=== PATIENT | female | born 1965 | race Caucasian/White ===

== ENCOUNTER 2017-01-10 04:28 | Emergency (ER) | payer MEDICAID ==
[~2017-01-10] VITALS: Ht 165.1 cm; Wt 63.5 kg
[~2017-01-10 04:28] MED LIST: ALBU8.5H3 INH; AMLO5TAB2 PO; BACL20TA PO; BUDE10.2 INH; LISI-167 PO; PRED10TA PO; PRED20TA PO; TIOT18CA INH; TRAM50TA2 PO
[2017-01-10] MEDS ORDERED: KETOROLAC 30 MG/1 ML IM ONE (05:00)
[2017-01-10] MEDS ORDERED: KETOROLAC 30 MG/1 ML ONE (05:03)
[2017-01-10] MEDS ORDERED: ALBUTEROL/IPRATROPIUM 2.5MG/0.5MG, 3 ML ONE ×2 (05:51→08:46)
[2017-01-10 05:59] LABS: BLOOD UREA NITROGEN 22 mg/dL (7-18)
[2017-01-10] MEDS ORDERED: ALBUTEROL/IPRATROPIUM 2.5MG/0.5MG, 3 ML NPPB ONE (06:00)
[2017-01-10 06:07] LABS: IS PT STATUS REG ER OR PRE ER? YES
[2017-01-10 07:48] VITALS: BP 131/87
== END 2017-01-10 07:51 | disposition home or self-care (01) ==
LOC: ED 05:48
DX: J20.8 Acute bronchitis due to other specified organisms (principal); B97.89 Other viral agents as the cause of diseases classified elsewhere; I10 Essential (primary) hypertension; J44.9 Chronic obstructive pulmonary disease, unspecified; M54.2 Cervicalgia; G89.29 Other chronic pain; Z87.01 Personal history of pneumonia (recurrent)
CPT/HCPCS: 36415; 71020; 80048; 82040; 84484; 85025; 85379; 93005; 94640; 96372; 99285; J1885; J7620

== ENCOUNTER 2017-06-27 00:39 | Inpatient (IN) | payer MEDICAID ==
[~2017-06-27] VITALS: Ht 165.1 cm; Wt 65.0 kg
[~2017-06-27 00:39] MED LIST changes: -ALBU8.5H3 INH; +ALBU8.5H8 INH
[2017-06-27] MEDS ORDERED: ALBUTEROL/IPRATROPIUM 2.5MG/0.5MG, 3 ML ONE ×2 (01:27→02:29)
[2017-06-27] MEDS: ALBUTEROL/IPRATROPIUM 2.5MG/0.5MG, 3 ML NPPB SCH ×6 (01:49→19:15)
[2017-06-27 03:20] LABS: HEMATOCRIT 38.8 % (34.6-47.8); HEMOGLOBIN 12.4 g/dL (11.7-16.4); WHITE BLOOD COUNT 7.3 x10^3/uL (3.4-10)
[2017-06-27 03:25] LABS: BLOOD UREA NITROGEN 22 mg/dL (7-18)
[2017-06-27] MEDS ORDERED: SODIUM CHLORIDE FLUSH 10ML SYR IVF PRN (03:30)
[2017-06-27 03:32] LABS: IS PT STATUS REG ER OR PRE ER? YES
[2017-06-27] MEDS ORDERED: DOCUSATE 100 MG CAPSULE PO PRN (04:30)
[2017-06-27] MEDS ORDERED: TEMAZEPAM 15 MG CAPSULE PO PRN (04:30)
[2017-06-27] MEDS ORDERED: ENALAPRILAT 1.25 MG/ML, 2ML IVPush PRN (04:30)
[2017-06-27] MEDS ORDERED: GUAIFENESIN/DM 200-20MG, 10ML UDC PO PRN (04:30)
[2017-06-27] MEDS ORDERED: ONDANSETRON ODT 4 MG PO PRN (04:30)
[2017-06-27 05:08] VITALS: BP 151/82
[2017-06-27] MEDS: NICOTINE 14MG/24 HR PATCH.TD24 TD SCH (05:54)
[2017-06-27] MEDS: methylPREDNISolone SOD SUCC 40 MG/ML IVPush SCH ×3 (05:54→20:54)
[2017-06-27] MEDS: HEPARIN 5,000 UNITS/ML, 1ML SQ SCH ×3 (05:54→23:08)
[2017-06-27] MEDS ORDERED: ALBUTEROL/IPRATROPIUM 2.5MG/0.5MG, 3 ML NPPB PRN (06:00)
[2017-06-27] MEDS ORDERED: DOXYCYCLINE 100MG TABLET PO SCH (09:00)
[2017-06-27 10:20] VITALS: BP 146/77
[2017-06-27] MEDS: AMLODIPINE 2.5 MG TABLET PO SCH (10:21)
[2017-06-27] MEDS: ACETAMINOPHEN 325 MG TABLET PO PRN ×3 (11:16→20:54)
[2017-06-27 15:11] VITALS: BP 160/81
[2017-06-27 20:00] VITALS: BP 160/82
[2017-06-27] MEDS: DOXYCYCLINE 100MG TABLET PO SCH (20:54)
[2017-06-28 03:41] VITALS: BP 136/62
[2017-06-28] MEDS: NICOTINE 14MG/24 HR PATCH.TD24 TD SCH (05:34)
[2017-06-28] MEDS: methylPREDNISolone SOD SUCC 40 MG/ML IVPush SCH ×3 (05:34→21:00)
[2017-06-28 05:43] LABS: HEMATOCRIT 39.7 % (34.6-47.8); WHITE BLOOD COUNT 13.3 x10^3/uL (3.4-10)
[2017-06-28 05:45] LABS: BLOOD UREA NITROGEN 19 mg/dL (7-18)
[2017-06-28] MEDS: ALBUTEROL/IPRATROPIUM 2.5MG/0.5MG, 3 ML NPPB SCH ×4 (07:00→20:35)
[2017-06-28 08:09] VITALS: BP_SYST 116; BP_SYST 165; BP_DIAS 67; BP_DIAS 87
[2017-06-28] MEDS: HEPARIN 5,000 UNITS/ML, 1ML SQ SCH ×3 (08:36→21:00)
[2017-06-28] MEDS: AMLODIPINE 2.5 MG TABLET PO SCH (08:36)
[2017-06-28] MEDS: DOXYCYCLINE 100MG TABLET PO SCH ×2 (08:37→21:00)
[2017-06-28] MEDS: ACETAMINOPHEN 325 MG TABLET PO PRN (13:35)
[2017-06-28 14:13] VITALS: BP 154/76
[2017-06-28 19:40] VITALS: BP 152/86
[2017-06-29 01:11] VITALS: BP 156/80
[2017-06-29] MEDS: methylPREDNISolone SOD SUCC 40 MG/ML IVPush SCH (04:32)
[2017-06-29] MEDS: HEPARIN 5,000 UNITS/ML, 1ML SQ SCH (04:33)
[2017-06-29] MEDS: NICOTINE 14MG/24 HR PATCH.TD24 TD SCH (04:33)
[2017-06-29] MEDS ORDERED: FLU VACC QS2017-18 (36MOS+) UP/PF 0.5 ML IM-VACC ONE (06:30)
[2017-06-29 08:00] VITALS: BP 141/71
[2017-06-29] MEDS: ALBUTEROL/IPRATROPIUM 2.5MG/0.5MG, 3 ML NPPB SCH (08:00)
[2017-06-29] MEDS: DOXYCYCLINE 100MG TABLET PO SCH (10:11)
[2017-06-29] MEDS: ACETAMINOPHEN 325 MG TABLET PO PRN (10:11)
[2017-06-29] MEDS: AMLODIPINE 2.5 MG TABLET PO SCH (10:11)
[2017-06-29] MEDS ORDERED: PRED20TA PO (11:30)
[2017-06-29] MEDS ORDERED: DOXY100T PO (11:30)
[2017-06-29] MEDS ORDERED: AMLO5TAB2 PO (11:31)
[2017-06-29] MEDS ORDERED: ALBUTEROL/IPRATROPIUM 2.5MG/0.5MG, 3 ML NPPB SCH (21:00)
== END 2017-06-29 14:04 | disposition home or self-care (01) | DRG 189 ==
LOC: ED 03:30 → EDIP 03:46 → 3NE 04:23
PROVIDERS: ADMIT Internal Medicine; ATTEND Internal Medicine
DX: J96.01 Acute respiratory failure with hypoxia (principal); E44.0 Moderate protein-calorie malnutrition; J44.1 Chronic obstructive pulmonary disease with (acute) exacerbation; D72.829 Elevated white blood cell count, unspecified; F17.200 Nicotine dependence, unspecified, uncomplicated; I44.7 Left bundle-branch block, unspecified; I10 Essential (primary) hypertension; G89.29 Other chronic pain; M54.2 Cervicalgia; T38.0X5A Adverse effect of glucocorticoids and synthetic analogues, initial encounter; Y92.89 Other specified places as the place of occurrence of the external cause; Z59.0 Homelessness; Z71.6 Tobacco abuse counseling; Z87.01 Personal history of pneumonia (recurrent); Z86.14 Personal history of Methicillin resistant Staphylococcus aureus infection; Z68.23 Body mass index [BMI] 23.0-23.9, adult
CPT/HCPCS: 36415; 71020; 80048; 82040; 83880; 84484; 85025; 90686; 93005; 94640; J1644; J7620; J2920; J7512

== ENCOUNTER 2017-09-16 10:29 | Inpatient (IN) | payer MEDICAID ==
[~2017-09-16] VITALS: Ht 165.1 cm; Wt 65.2 kg
[~2017-09-16 10:29] MED LIST changes: +DOXY100T PO
[2017-09-16] MEDS ORDERED: SODIUM CHLORIDE FLUSH 10ML SYR IVF ONE ×2 (11:30)
[2017-09-16] MEDS ORDERED: DIPHENHYDRAMINE 50 MG/ML, 1ML IVPush ONE (11:30)
[2017-09-16] MEDS ORDERED: ALBUTEROL/IPRATROPIUM 2.5MG/0.5MG, 3 ML NPPB ONE (11:30)
[2017-09-16] MEDS ORDERED: SODIUM CHLORIDE 0.9% 1,000ML IVBOLUS ONE (11:30)
[2017-09-16] MEDS ORDERED: METOCLOPRAMIDE 5 MG/ML, 2ML IVPush ONE (11:30)
[2017-09-16] MEDS ORDERED: KETOROLAC 30 MG/1 ML IVPush ONE (11:30)
[2017-09-16] MEDS ORDERED: methylPREDNISolone SOD SUCC 125 MG/2 ML IVP ONE (11:30)
[2017-09-16] MEDS ORDERED: ALBUTEROL/IPRATROPIUM 2.5MG/0.5MG, 3 ML ONE (11:39)
[2017-09-16 11:50] LABS: BASOPHILS # (AUTO) 0.03 x10^3/uL (0-0.1); BASOPHILS % (AUTO) 0 % (0-1); EOSINOPHILS # (AUTO) 0.15 x10^3/uL (0-0.4); EOSINOPHILS % (AUTO) 1 % (1-7); LYMPHOCYTES # (AUTO) 1.27 x10^3/uL (1-3.4); LYMPHOCYTES % (AUTO) 12 % (22-44); MD NO; MEAN CORPUSCULAR HGB CONC 32.9 g/dL (32.4-35.8); MEAN CORPUSCULAR VOLUME 82.3 fL (80-100); MEAN PLATELET VOLUME 8.9 fL (7.4-10.4); MONOCYTES # (AUTO) 0.56 x10^3/uL (0.2-0.8); MONOCYTES % (AUTO) 5 % (2-9); NEUTROPHILS # (AUTO) 8.51 x10^3/uL (1.8-6.8); NEUTROPHILS % (AUTO) 81 % (42-75); PLATELET COUNT 347 x10^3/uL (130-400); RED BLOOD COUNT 5.09 x10^6/uL (3.82-5.3); RED CELL DISTRIBUTION WIDTH 16.6 % (9.6-15.2)
[2017-09-16] MEDS ORDERED: methylPREDNISolone SOD SUCC 125 MG/2 ML ONE ×2 (11:52→16:47)
[2017-09-16] MEDS ORDERED: METOCLOPRAMIDE 5 MG/ML, 2ML ONE (11:53)
[2017-09-16] MEDS ORDERED: KETOROLAC 30 MG/1 ML ONE (11:53)
[2017-09-16] MEDS ORDERED: DIPHENHYDRAMINE 50 MG/ML, 1ML ONE (11:53)
[2017-09-16 12:02] LABS: ALBUMIN 2.8 g/dL (3.4-5.0); ANION GAP 7 mmol/L (5-15); CALCIUM 8.5 mg/dL (8.5-10.1); CHLORIDE 104 mmol/L (98-107); CREATININE 0.71 mg/dL (0.55-1.02)
[2017-09-16 12:17] LABS: RAPID INFLUENZA A Negative (Negative); RAPID INFLUENZA B Negative (Negative)
[2017-09-16] MEDS: SODIUM CHLORIDE 0.9% 1,000 ML IV SCH ×2 (16:38→22:11)
[2017-09-16] MEDS ORDERED: POTASSIUM CHLORIDE 20 MEQ TAB.ER.PRT ONE (16:47)
[2017-09-16] MEDS ORDERED: ENOXAPARIN 40 MG/0.4 ML ONE (16:48)
[2017-09-16] MEDS: POTASSIUM CHLORIDE 20 MEQ TAB.ER.PRT PO SCH (16:52)
[2017-09-16] MEDS: methylPREDNISolone SOD SUCC 125 MG/2 ML IVPush SCH (16:52)
[2017-09-16] MEDS ORDERED: ACETAMINOPHEN 325 MG TABLET PO PRN (17:00)
[2017-09-16] MEDS ORDERED: ENOXAPARIN 40 MG/0.4 ML SQ SCH (17:00)
[2017-09-16] MEDS ORDERED: GUAIFENESIN/DM 200-20MG, 10ML UDC PO PRN (17:00)
[2017-09-16] MEDS ORDERED: ONDANSETRON 2MG/ML, 2ML IVPush PRN (17:00)
[2017-09-16 20:00] VITALS: BP 141/95
[2017-09-16 22:22] VITALS: BP 141/95
[2017-09-17] MEDS: methylPREDNISolone SOD SUCC 125 MG/2 ML IVPush SCH ×2 (00:49→06:25)
[2017-09-17 02:04] VITALS: BP 137/80
[2017-09-17] MEDS ORDERED: FLU VACC QS2017-18 (36MOS+) UP/PF 0.5 ML IM-VACC ONE (02:30)
[2017-09-17] MEDS ORDERED: IPRATROPIUM 0.5 MG/2.5 ML INHA ONE ×2 (03:16→03:36)
[2017-09-17] MEDS: SODIUM CHLORIDE 0.9% 1,000 ML IV SCH (05:23)
[2017-09-17 07:37] VITALS: BP 122/70
[2017-09-17] MEDS: POTASSIUM CHLORIDE 20 MEQ TAB.ER.PRT PO SCH (07:54)
[2017-09-17] MEDS ORDERED: IPRATROPIUM 0.5 MG/2.5 ML INHA NPPB SCH (09:00)
== END 2017-09-17 09:55 | disposition left against medical advice (07) | DRG 189 ==
LOC: ED 11:42 → EDIP 14:26 → 4NOR 18:44
PROVIDERS: ADMIT Internal Medicine; ATTEND Hospitalist
DX: J96.01 Acute respiratory failure with hypoxia (principal); E43 Unspecified severe protein-calorie malnutrition; J44.1 Chronic obstructive pulmonary disease with (acute) exacerbation; F17.210 Nicotine dependence, cigarettes, uncomplicated; G89.29 Other chronic pain; Z53.21 Procedure and treatment not carried out due to patient leaving prior to being seen by health care provider; M54.2 Cervicalgia; I10 Essential (primary) hypertension; Z68.23 Body mass index [BMI] 23.0-23.9, adult; Z86.14 Personal history of Methicillin resistant Staphylococcus aureus infection; Z87.01 Personal history of pneumonia (recurrent)
CPT/HCPCS: 36415; 71010; 80048; 82040; 85025; 87400; 94640; 96361; 96372; 96374; 96375; J1650; J1885; J7620; J1200; J2765; J2930; J7030

== ENCOUNTER 2017-10-08 07:50 | Inpatient (IN) | payer MEDICAID ==
[~2017-10-08] VITALS: Ht 165.1 cm; Wt 68.3 kg
[2017-10-08] MEDS ORDERED: LORazepam 2 MG/ML, 1ML IM ONE (09:00)
[2017-10-08] MEDS ORDERED: LORazepam 2 MG/ML, 1ML ONE (09:31)
[2017-10-08 09:50] LABS: BASOPHILS # (AUTO) 0.03 x10^3/uL (0-0.1); BASOPHILS % (AUTO) 0 % (0-1); EOSINOPHILS # (AUTO) 0.09 x10^3/uL (0-0.4); EOSINOPHILS % (AUTO) 1 % (1-7); LYMPHOCYTES # (AUTO) 1.14 x10^3/uL (1-3.4); LYMPHOCYTES % (AUTO) 12 % (22-44); MD NO; MEAN CORPUSCULAR HEMOGLOBIN 26.7 pg (27.0-34.8); MEAN CORPUSCULAR HGB CONC 32.8 g/dL (32.4-35.8); MEAN CORPUSCULAR VOLUME 81.4 fL (80-100); MEAN PLATELET VOLUME 8.4 fL (7.4-10.4); MONOCYTES # (AUTO) 0.41 x10^3/uL (0.2-0.8); MONOCYTES % (AUTO) 4 % (2-9); NEUTROPHILS # (AUTO) 7.83 x10^3/uL (1.8-6.8); NEUTROPHILS % (AUTO) 83 % (42-75); PLATELET COUNT 290 x10^3/uL (130-400); RED BLOOD COUNT 4.85 x10^6/uL (3.82-5.3); RED CELL DISTRIBUTION WIDTH 15.5 % (9.6-15.2)
[2017-10-08 10:04] LABS: ALANINE AMINOTRANSFERASE 27 U/L (12-78); ALBUMIN 3.1 g/dL (3.4-5.0); ANION GAP 5 mmol/L (5-15); CALCIUM 8.2 mg/dL (8.5-10.1); CHLORIDE 108 mmol/L (98-107); CREATININE 0.68 mg/dL (0.55-1.02)
[2017-10-08 10:05] LABS: ALKALINE PHOSPHATASE 65 U/L (45-117); BILIRUBIN,TOTAL 0.5 mg/dL (0.2-1.0)
[2017-10-08 10:07] LABS: ACETAMINOPHEN < 2 mcg/mL (10-30); SALICYLATE LEVEL < 1.7 mg/dL (2.8-20.0)
[2017-10-08 14:40] LABS: AMPHETAMINE SCREEN, URINE Positive (Negative); BARBITURATE SCREEN, URINE Negative (Negative); BENZODIAZEPINE SCREEN, URINE Positive (Negative); CANNABINOID SCREEN, URINE Negative (Negative); COCAINE SCREEN, URINE Negative (Negative); METHADONE SCREEN, URINE Negative (Negative); OPIATE SCREEN, URINE Negative (Negative)
[2017-10-09] MEDS ORDERED: AZITHROMYCIN 500 MG in SODIUM CHLORIDE 0.9% 250 ML IVPB ONE (04:30)
[2017-10-09] MEDS ORDERED: ALBUTEROL/IPRATROPIUM 2.5MG/0.5MG, 3 ML NPPB ONE (04:30)
[2017-10-09] MEDS ORDERED: CEFTRIAXONE PMX 1GM/50ML 50 ML IVPB ONE (04:30)
[2017-10-09] MEDS ORDERED: methylPREDNISolone SOD SUCC 125 MG/2 ML IVP ONE (04:30)
[2017-10-09] MEDS ORDERED: SODIUM CHLORIDE FLUSH 10ML SYR IVF ONE (04:30)
[2017-10-09] MEDS ORDERED: SODIUM CHLORIDE 0.9% 1,000ML IVBOLUS ONE (04:30)
[2017-10-09] MEDS ORDERED: PANTOPRAZOLE 80 MG in SODIUM CHLORIDE 0.9% 100 ML IV SCH (04:32)
[2017-10-09] MEDS ORDERED: CEFTRIAXONE PMX 1GM/50ML 50 ML IV ONE (05:00)
[2017-10-09] MEDS ORDERED: methylPREDNISolone SOD SUCC 125 MG/2 ML ONE (05:01)
[2017-10-09] MEDS ORDERED: CEFTRIAXONE PMX 1GM/50ML 50 ML ONE (05:01)
[2017-10-09] MEDS: SODIUM CHLORIDE 0.9% 1,000 ML IV SCH ×2 (05:52→15:52)
[2017-10-09] MEDS ORDERED: BISACODYL 10 MG SUPP PR PRN (06:00)
[2017-10-09] MEDS ORDERED: hydrALAzine 20 MG/ML, 1ML IVPush PRN (06:00)
[2017-10-09] MEDS: HEPARIN 5,000 UNITS/ML, 1ML SQ SCH ×3 (06:00→21:28)
[2017-10-09] MEDS ORDERED: ACETAMINOPHEN 325 MG TABLET PO PRN (06:00)
[2017-10-09] MEDS ORDERED: POLYETHYLENE GLYCOL 17 GM PACKET PO PRN (06:00)
[2017-10-09] MEDS ORDERED: morphine SULFATE 10 MG/ML, 1ML IVPush PRN (06:00)
[2017-10-09] MEDS: methylPREDNISolone SOD SUCC 125 MG/2 ML IVPush SCH ×3 (06:00→18:00)
[2017-10-09] MEDS ORDERED: ALBUTEROL/IPRATROPIUM 2.5MG/0.5MG, 3 ML NPPB SCH (06:00)
[2017-10-09] MEDS: NICOTINE 7 MG/24 HR PATCH.TD24 TD SCH (06:00)
[2017-10-09] MEDS ORDERED: LABETALOL 5MG/ML, 20ML IVPush PRN (06:00)
[2017-10-09] MEDS ORDERED: OXYcodone IR 5MG TABLET PO PRN (06:00)
[2017-10-09] MEDS ORDERED: ONDANSETRON 2MG/ML, 2ML IVPush PRN (06:00)
[2017-10-09 06:48] LABS: HEMOGLOBIN A1C 5.7 % (4.2-6.3)
[2017-10-09 06:52] LABS: FREE T4 (FREE THYROXINE) 1.35 ng/dL (0.76-1.46); THYROID STIMULATING HORMONE 0.581 mIU/L (0.358-3.740)
[2017-10-09 07:05] VITALS: BP 136/69
[2017-10-09] MEDS: SENNA/DOCUSATE TABLET PO SCH (09:00)
[2017-10-09 13:11] LABS: CULTURE INDICATED? YES; MICROSCOPIC INDICATED
[2017-10-09 18:44] VITALS: BP 103/65
[2017-10-10] MEDS: methylPREDNISolone SOD SUCC 125 MG/2 ML IVPush SCH ×3 (00:04→13:01)
[2017-10-10 01:00] VITALS: BP 104/57
[2017-10-10 01:02] VITALS: BP 125/85
[2017-10-10 05:28] LABS: BASOPHILS % (AUTO) 0 % (0-1); EOSINOPHILS % (AUTO) 0 % (1-7); LYMPHOCYTES # (AUTO) 0.44 x10^3/uL (1-3.4); LYMPHOCYTES % (AUTO) 6 % (22-44); MD NO; MEAN CORPUSCULAR HEMOGLOBIN 26.9 pg (27.0-34.8); MEAN CORPUSCULAR HGB CONC 32.7 g/dL (32.4-35.8); MEAN CORPUSCULAR VOLUME 82.4 fL (80-100); MEAN PLATELET VOLUME 8.8 fL (7.4-10.4); MONOCYTES # (AUTO) 0.05 x10^3/uL (0.2-0.8); MONOCYTES % (AUTO) 1 % (2-9); NEUTROPHILS # (AUTO) 7.37 x10^3/uL (1.8-6.8); NEUTROPHILS % (AUTO) 94 % (42-75); PLATELET COUNT 276 x10^3/uL (130-400); RED BLOOD COUNT 4.76 x10^6/uL (3.82-5.3); RED CELL DISTRIBUTION WIDTH 16.2 % (9.6-15.2)
[2017-10-10] MEDS: HEPARIN 5,000 UNITS/ML, 1ML SQ SCH ×2 (05:33→14:00)
[2017-10-10] MEDS: NICOTINE 7 MG/24 HR PATCH.TD24 TD SCH (05:34)
[2017-10-10 05:38] LABS: CHLORIDE 107 mmol/L (98-107)
[2017-10-10 05:44] LABS: ALANINE AMINOTRANSFERASE 30 U/L (12-78); ALBUMIN 2.8 g/dL (3.4-5.0); ALKALINE PHOSPHATASE 60 U/L (45-117); ANION GAP 8 mmol/L (5-15); BILIRUBIN,TOTAL 0.4 mg/dL (0.2-1.0); CALCIUM 8.6 mg/dL (8.5-10.1); CHOL/HDL RATIO 2.1; CHOLESTEROL, TOTAL 163 mg/dL (140-239); CREATININE 0.86 mg/dL (0.55-1.02); HDL CHOL % 48 % (28-40); HDL CHOLESTEROL (DIRECT) 79 mg/dL (40-60); LDL CHOLESTEROL,CALCULATED 76 mg/dL (54-169); TOTAL PROTEIN 6.8 g/dL (6.4-8.2); TRIGLYCERIDES 41 mg/dL (50-200); VLDL CHOLESTEROL 8 mg/dL (0-25)
[2017-10-10] MEDS ORDERED: ALBUTEROL/IPRATROPIUM 2.5MG/0.5MG, 3 ML NPPB PRN (06:00)
[2017-10-10 08:07] VITALS: BP 167/94
[2017-10-10] MEDS: SENNA/DOCUSATE TABLET PO SCH (09:00)
[2017-10-10] MEDS ORDERED: METH4TAB2 PO (13:48)
[2017-10-10] MEDS ORDERED: CEFD300C37 PO (13:48)
[2017-10-10 14:12] VITALS: BP 155/87
== END 2017-10-10 17:52 | disposition home or self-care (01) | DRG 193 ==
LOC: ED 09:07 → EDIP 10-09 05:00 → 3NE 10-09 07:12
PROVIDERS: ADMIT Internal Medicine; ATTEND Family Medicine
DX: J15.9 Unspecified bacterial pneumonia (principal); J96.01 Acute respiratory failure with hypoxia; G92 Toxic encephalopathy; E44.0 Moderate protein-calorie malnutrition; J44.1 Chronic obstructive pulmonary disease with (acute) exacerbation; J44.0 Chronic obstructive pulmonary disease with (acute) lower respiratory infection; I44.7 Left bundle-branch block, unspecified; T50.995A Adverse effect of other drugs, medicaments and biological substances, initial encounter; I10 Essential (primary) hypertension; F15.10 Other stimulant abuse, uncomplicated; Z68.25 Body mass index [BMI] 25.0-25.9, adult; Y92.89 Other specified places as the place of occurrence of the external cause; Z59.0 Homelessness
CPT/HCPCS: 36415; 36600; 70450; 71045; 80053; 80061; 80307; 80329; 81001; 82803; 83036; 83735; 84439; 84443; 85025; 86850; 86900; 87040; 87086; 94640; 96372; 96374; J0696; J1644; J7620; G0480; J2060; J2930; J7030

== ENCOUNTER 2017-12-08 19:14 | Inpatient (IN) | payer MEDICAID ==
[~2017-12-08] VITALS: Ht 165.1 cm; Wt 73.7 kg
[~2017-12-08 19:14] MED LIST changes: +CEFD300C37 PO; +METH4TAB2 PO
[2017-12-08] MEDS ORDERED: ALBU90AE INH (19:34)
[2017-12-08] MEDS ORDERED: LISI-167 PO (19:34)
[2017-12-08] MEDS ORDERED: ACETAMINOPHEN 325 MG TABLET ONE (19:46)
[2017-12-08] MEDS ORDERED: LISINOPRIL 20 MG TABLET ONE (19:46)
[2017-12-08] MEDS ORDERED: ALBUTEROL/IPRATROPIUM 2.5MG/0.5MG, 3 ML NPPB ONE (20:00)
[2017-12-08] MEDS ORDERED: SODIUM CHLORIDE FLUSH 10ML SYR IVF ONE (20:00)
[2017-12-08] MEDS ORDERED: LISINOPRIL 20 MG TABLET PO ONE (20:00)
[2017-12-08] MEDS ORDERED: SODIUM CHLORIDE 0.9% 1,000ML IVBOLUS ONE (20:00)
[2017-12-08] MEDS ORDERED: ACETAMINOPHEN 325 MG TABLET PO ONE (20:00)
[2017-12-08 20:01] LABS: BASOPHILS # (AUTO) 0.02 x10^3/uL (0-0.1); BASOPHILS % (AUTO) 0 % (0-1); EOSINOPHILS # (AUTO) 0.07 x10^3/uL (0-0.4); EOSINOPHILS % (AUTO) 1 % (1-7); LYMPHOCYTES # (AUTO) 0.79 x10^3/uL (1-3.4); LYMPHOCYTES % (AUTO) 10 % (22-44); MD NO; MEAN CORPUSCULAR HEMOGLOBIN 26.9 pg (27.0-34.8); MEAN CORPUSCULAR HGB CONC 32.7 g/dL (32.4-35.8); MEAN CORPUSCULAR VOLUME 82.4 fL (80-100); MEAN PLATELET VOLUME 8.5 fL (7.4-10.4); MONOCYTES # (AUTO) 0.59 x10^3/uL (0.2-0.8); MONOCYTES % (AUTO) 8 % (2-9); NEUTROPHILS # (AUTO) 6.09 x10^3/uL (1.8-6.8); NEUTROPHILS % (AUTO) 81 % (42-75); PLATELET COUNT 237 x10^3/uL (130-400); RED BLOOD COUNT 5.48 x10^6/uL (3.82-5.3); RED CELL DISTRIBUTION WIDTH 15.8 % (9.6-15.2)
[2017-12-08 20:12] LABS: ALANINE AMINOTRANSFERASE 24 U/L (12-78); ALBUMIN 3.1 g/dL (3.4-5.0); ANION GAP 7 mmol/L (5-15); CALCIUM 8.1 mg/dL (8.5-10.1); CHLORIDE 105 mmol/L (98-107); CREATININE 0.61 mg/dL (0.55-1.02)
[2017-12-08 20:16] LABS: ALKALINE PHOSPHATASE 89 U/L (45-117); BILIRUBIN,TOTAL 0.5 mg/dL (0.2-1.0); TOTAL PROTEIN 7.7 g/dL (6.4-8.2); TROPONIN I < 0.015 ng/mL (0.000-0.045)
[2017-12-08] MEDS ORDERED: SODIUM CHLORIDE 0.9% 1,000 ML IV SCH (21:48)
[2017-12-08] MEDS ORDERED: ENALAPRILAT 1.25 MG/ML, 2ML IVPush PRN (22:00)
[2017-12-08] MEDS ORDERED: hydrALAzine 20 MG/ML, 1ML IVPush PRN (22:00)
[2017-12-08] MEDS ORDERED: BISACODYL 10 MG SUPP PR PRN (22:00)
[2017-12-08] MEDS ORDERED: POLYETHYLENE GLYCOL 17 GM PACKET PO PRN (22:00)
[2017-12-08] MEDS ORDERED: DOCUSATE 100 MG CAPSULE PO PRN (22:00)
[2017-12-08] MEDS ORDERED: ONDANSETRON 2MG/ML, 2ML IVPush PRN ×2 (22:00)
[2017-12-08 22:25] LABS: FREE T4 (FREE THYROXINE) 1.45 ng/dL (0.76-1.46); THYROID STIMULATING HORMONE 1.02 mIU/L (0.358-3.740)
[2017-12-08 22:45] VITALS: BP 156/84
[2017-12-08] MEDS ORDERED: ALBUTEROL/IPRATROPIUM 2.5MG/0.5MG, 3 ML NPPB PRN (23:30)
[2017-12-08] MEDS: methylPREDNISolone SOD SUCC 125 MG/2 ML IVPush SCH (23:57)
[2017-12-08] MEDS: NICOTINE 7 MG/24 HR PATCH.TD24 TD SCH (23:57)
[2017-12-08] MEDS: FLUTICASONE/VILANTEROL 200-25MCG/INH INH SCH (23:58)
[2017-12-08] MEDS: DOXYCYCLINE 100MG TABLET PO SCH (23:58)
[2017-12-08] MEDS: HEPARIN 5,000 UNITS/ML, 1ML SQ SCH (23:59)
[2017-12-09 02:41] LABS: TROPONIN I < 0.015 ng/mL (0.000-0.045)
[2017-12-09 03:00] VITALS: BP 136/79
[2017-12-09] MEDS: methylPREDNISolone SOD SUCC 125 MG/2 ML IVPush SCH ×3 (05:51→17:42)
[2017-12-09 05:57] LABS: CULTURE INDICATED? YES; MICROSCOPIC INDICATED
[2017-12-09] MEDS: ALBUTEROL/IPRATROPIUM 2.5MG/0.5MG, 3 ML NPPB SCH ×4 (07:00→21:45)
[2017-12-09 08:01] VITALS: BP 157/86
[2017-12-09 09:01] LABS: BASOPHILS % (AUTO) 0 % (0-1); EOSINOPHILS % (AUTO) 0 % (1-7); LYMPHOCYTES # (AUTO) 0.34 x10^3/uL (1-3.4); LYMPHOCYTES % (AUTO) 8 % (22-44); MD NO; MEAN CORPUSCULAR HGB CONC 32.5 g/dL (32.4-35.8); MEAN CORPUSCULAR VOLUME 83.2 fL (80-100); MEAN PLATELET VOLUME 8.7 fL (7.4-10.4); MONOCYTES # (AUTO) 0.05 x10^3/uL (0.2-0.8); MONOCYTES % (AUTO) 1 % (2-9); NEUTROPHILS # (AUTO) 3.85 x10^3/uL (1.8-6.8); NEUTROPHILS % (AUTO) 91 % (42-75); PLATELET COUNT 251 x10^3/uL (130-400); RED BLOOD COUNT 5.23 x10^6/uL (3.82-5.3)
[2017-12-09 09:06] LABS: ANION GAP 8 mmol/L (5-15); CALCIUM 8.6 mg/dL (8.5-10.1); CHLORIDE 104 mmol/L (98-107)
[2017-12-09 09:09] LABS: ALANINE AMINOTRANSFERASE 24 U/L (12-78); ALKALINE PHOSPHATASE 81 U/L (45-117); BILIRUBIN,TOTAL 0.3 mg/dL (0.2-1.0); CHOL/HDL RATIO 2.1; CHOLESTEROL, TOTAL 159 mg/dL (140-239); CREATININE 0.63 mg/dL (0.55-1.02); HDL CHOL % 47 % (28-40); HDL CHOLESTEROL (DIRECT) 75 mg/dL (40-60); TOTAL PROTEIN 7.3 g/dL (6.4-8.2); TRIGLYCERIDES 38 mg/dL (50-200); VLDL CHOLESTEROL 8 mg/dL (0-25)
[2017-12-09] MEDS: LISINOPRIL 10 MG TABLET PO SCH (09:09)
[2017-12-09] MEDS: CEFTRIAXONE PMX 1GM/50ML 50 ML IV SCH (09:09)
[2017-12-09] MEDS: DOXYCYCLINE 100MG TABLET PO SCH ×2 (09:09→21:24)
[2017-12-09 09:10] LABS: LDL CHOLESTEROL,CALCULATED 76 mg/dL (54-169); TROPONIN I < 0.015 ng/mL (0.000-0.045)
[2017-12-09] MEDS: HEPARIN 5,000 UNITS/ML, 1ML SQ SCH ×2 (09:10→17:42)
[2017-12-09 13:21] VITALS: BP 146/73
[2017-12-09] MEDS: ACETAMINOPHEN 325 MG TABLET PO PRN (17:42)
[2017-12-09] MEDS: GUAIFENESIN/DM 100-10MG, 5ML UDC PO PRN (17:48)
[2017-12-09 19:05] VITALS: BP 147/86
[2017-12-09] MEDS: NICOTINE 7 MG/24 HR PATCH.TD24 TD SCH (21:24)
[2017-12-09] MEDS: FLUTICASONE/VILANTEROL 200-25MCG/INH INH SCH (21:24)
[2017-12-10] MEDS: HEPARIN 5,000 UNITS/ML, 1ML SQ SCH ×3 (00:40→17:48)
[2017-12-10] MEDS: GUAIFENESIN/DM 100-10MG, 5ML UDC PO PRN ×3 (00:40→17:47)
[2017-12-10] MEDS: methylPREDNISolone SOD SUCC 125 MG/2 ML IVPush SCH ×4 (00:40→17:48)
[2017-12-10] MEDS: ACETAMINOPHEN 325 MG TABLET PO PRN ×3 (02:10→17:48)
[2017-12-10 02:40] VITALS: BP 114/73
[2017-12-10 07:17] VITALS: BP 128/71
[2017-12-10] MEDS: ALBUTEROL/IPRATROPIUM 2.5MG/0.5MG, 3 ML NPPB SCH ×4 (07:35→21:48)
[2017-12-10] MEDS: CEFTRIAXONE PMX 1GM/50ML 50 ML IV SCH (09:21)
[2017-12-10] MEDS: DOXYCYCLINE 100MG TABLET PO SCH ×2 (09:21→20:43)
[2017-12-10] MEDS: LISINOPRIL 10 MG TABLET PO SCH (09:22)
[2017-12-10 12:14] VITALS: BP 135/74
[2017-12-10] MEDS: NICOTINE 7 MG/24 HR PATCH.TD24 TD SCH (20:43)
[2017-12-10] MEDS: FLUTICASONE/VILANTEROL 200-25MCG/INH INH SCH (20:44)
[2017-12-10 20:50] VITALS: BP 136/76
[2017-12-11] MEDS: HEPARIN 5,000 UNITS/ML, 1ML SQ SCH ×3 (00:45→18:24)
[2017-12-11] MEDS: GUAIFENESIN/DM 100-10MG, 5ML UDC PO PRN ×2 (00:45→18:37)
[2017-12-11] MEDS: methylPREDNISolone SOD SUCC 125 MG/2 ML IVPush SCH ×4 (00:45→18:23)
[2017-12-11] MEDS: ACETAMINOPHEN 325 MG TABLET PO PRN ×3 (00:45→23:13)
[2017-12-11 00:50] VITALS: BP 149/94
[2017-12-11] MEDS: ALBUTEROL/IPRATROPIUM 2.5MG/0.5MG, 3 ML NPPB SCH ×4 (07:00→20:30)
[2017-12-11 08:18] VITALS: BP 160/89
[2017-12-11] MEDS: CEFTRIAXONE PMX 1GM/50ML 50 ML IV SCH (08:55)
[2017-12-11] MEDS: LISINOPRIL 10 MG TABLET PO SCH (08:56)
[2017-12-11] MEDS: DOXYCYCLINE 100MG TABLET PO SCH ×2 (08:56→21:07)
[2017-12-11 15:20] VITALS: BP 136/74
[2017-12-11 20:00] VITALS: BP 143/89
[2017-12-11] MEDS: NICOTINE 7 MG/24 HR PATCH.TD24 TD SCH (21:07)
[2017-12-11] MEDS: FLUTICASONE/VILANTEROL 200-25MCG/INH INH SCH (21:08)
[2017-12-12] MEDS: HEPARIN 5,000 UNITS/ML, 1ML SQ SCH ×2 (00:37→09:48)
[2017-12-12] MEDS: methylPREDNISolone SOD SUCC 125 MG/2 ML IVPush SCH ×3 (00:37→11:45)
[2017-12-12] MEDS: GUAIFENESIN/DM 100-10MG, 5ML UDC PO PRN (00:37)
[2017-12-12 00:40] VITALS: BP 167/93
[2017-12-12] MEDS: ALBUTEROL/IPRATROPIUM 2.5MG/0.5MG, 3 ML NPPB SCH ×2 (07:45→11:25)
[2017-12-12 08:05] VITALS: BP 140/94
[2017-12-12] MEDS ORDERED: LISI1TAB5 PO (08:19)
[2017-12-12] MEDS ORDERED: ACET-1600 PO (08:19)
[2017-12-12] MEDS ORDERED: PRED5TAB PO (08:19)
[2017-12-12] MEDS ORDERED: DOXY100T10 PO (08:19)
[2017-12-12] MEDS ORDERED: CEFD300C37 PO (08:19)
[2017-12-12] MEDS ORDERED: FLUT1BLS INH (08:19)
[2017-12-12] MEDS ORDERED: DOCU-131 PO (08:19)
[2017-12-12] MEDS ORDERED: IPRA4AER INH (08:23)
[2017-12-12] MEDS ORDERED: LISINOPRIL 20 MG TABLET PO SCH (09:00)
[2017-12-12] MEDS: DOXYCYCLINE 100MG TABLET PO SCH (09:47)
[2017-12-12] MEDS: ACETAMINOPHEN 325 MG TABLET PO PRN (09:47)
[2017-12-12] MEDS: CEFTRIAXONE PMX 1GM/50ML 50 ML IV SCH (09:54)
== END 2017-12-12 14:30 | disposition home or self-care (01) | DRG 189 ==
LOC: ED 21:37 → EDIP 23:02 → 3NE 23:02
PROVIDERS: ADMIT Internal Medicine; ATTEND Internal Medicine
DX: J96.01 Acute respiratory failure with hypoxia (principal); E44.0 Moderate protein-calorie malnutrition; I11.9 Hypertensive heart disease without heart failure; J44.1 Chronic obstructive pulmonary disease with (acute) exacerbation; B19.20 Unspecified viral hepatitis C without hepatic coma; F17.200 Nicotine dependence, unspecified, uncomplicated; I44.7 Left bundle-branch block, unspecified; Z59.0 Homelessness; Z68.27 Body mass index [BMI] 27.0-27.9, adult; Z86.14 Personal history of Methicillin resistant Staphylococcus aureus infection; Z91.14 Patient's other noncompliance with medication regimen; Z99.3 Dependence on wheelchair; Z71.6 Tobacco abuse counseling
CPT/HCPCS: 36415; 71045; 80053; 80061; 81001; 83036; 83880; 84439; 84443; 84484; 85025; 87086; 93005; 93306; 94640; 99285; J0696; J1644; J7620; J2930; J7512

== ENCOUNTER 2018-02-15 21:02 | Emergency (ER) | payer MEDICAID ==
[~2018-02-15] VITALS: Ht 165.1 cm; Wt 64.0 kg
[~2018-02-15 21:02] MED LIST changes: +ACET-1600 PO; +ALBU90AE INH; +DOCU-131 PO; +DOXY100T10 PO; +FLUT1BLS INH; +IPRA4AER INH; +LISI1TAB5 PO; +PRED5TAB PO
[2018-02-15] MEDS ORDERED: ALBUTEROL SULFATE 2.5 MG/3 ML NPPB ONE ×2 (21:30→23:00)
[2018-02-15] MEDS ORDERED: ALBUTEROL/IPRATROPIUM 2.5MG/0.5MG, 3 ML NPPB ONE (21:30)
[2018-02-15] MEDS ORDERED: ALBUTEROL/IPRATROPIUM 2.5MG/0.5MG, 3 ML ONE (22:07)
[2018-02-15] MEDS ORDERED: ALBUTEROL SULFATE 2.5 MG/3 ML ONE (23:00)
[2018-02-15 23:31] VITALS: BP 156/87
== END 2018-02-15 23:33 | disposition home or self-care (01) ==
LOC: ED 21:30
DX: J44.1 Chronic obstructive pulmonary disease with (acute) exacerbation (principal); I10 Essential (primary) hypertension; F17.200 Nicotine dependence, unspecified, uncomplicated
CPT/HCPCS: 71046; 93005; 94640; 99284; J7512; J7613; J7620

== ENCOUNTER 2018-03-16 23:48 | Inpatient (IN) | payer MEDICAID ==
[~2018-03-16] VITALS: Ht 166.4 cm; Wt 79.0 kg
[2018-03-17] MEDS ORDERED: methylPREDNISolone SOD SUCC 125 MG/2 ML ONE ×2 (00:18→16:31)
[2018-03-17] MEDS ORDERED: ALBUTEROL/IPRATROPIUM 2.5MG/0.5MG, 3 ML ONE (00:26)
[2018-03-17] MEDS ORDERED: ALBUTEROL SULFATE 2.5 MG/3 ML NPPB ONE (00:30)
[2018-03-17] MEDS ORDERED: SODIUM CHLORIDE 0.9% 1,000ML IVBOLUS ONE (00:30)
[2018-03-17] MEDS ORDERED: methylPREDNISolone SOD SUCC 125 MG/2 ML IVP ONE (00:30)
[2018-03-17] MEDS ORDERED: SODIUM CHLORIDE FLUSH 10ML SYR IVF ONE (00:30)
[2018-03-17] MEDS ORDERED: ALBUTEROL/IPRATROPIUM 2.5MG/0.5MG, 3 ML NPPB ONE (00:30)
[2018-03-17 00:40] LABS: BASOPHILS # (AUTO) 0.01 x10^3/uL (0-0.1); BASOPHILS % (AUTO) 0 % (0-1); EOSINOPHILS # (AUTO) 0.19 x10^3/uL (0-0.4); EOSINOPHILS % (AUTO) 3 % (1-7); LYMPHOCYTES # (AUTO) 0.99 x10^3/uL (1-3.4); LYMPHOCYTES % (AUTO) 13 % (22-44); MD NO; MEAN CORPUSCULAR HEMOGLOBIN 27.8 pg (27.0-34.8); MEAN CORPUSCULAR VOLUME 84.3 fL (80-100); MEAN PLATELET VOLUME 8.7 fL (7.4-10.4); MONOCYTES # (AUTO) 0.61 x10^3/uL (0.2-0.8); MONOCYTES % (AUTO) 8 % (2-9); NEUTROPHILS # (AUTO) 5.65 x10^3/uL (1.8-6.8); NEUTROPHILS % (AUTO) 76 % (42-75); PLATELET COUNT 259 x10^3/uL (130-400); RED CELL DISTRIBUTION WIDTH 16.3 % (9.6-15.2)
[2018-03-17 00:50] LABS: ALANINE AMINOTRANSFERASE 24 U/L (12-78); ANION GAP 5 mmol/L (5-15); CALCIUM 8.4 mg/dL (8.5-10.1); CHLORIDE 106 mmol/L (98-107); CREATININE 0.69 mg/dL (0.55-1.02)
[2018-03-17 00:53] LABS: ALKALINE PHOSPHATASE 78 U/L (45-117); BILIRUBIN,TOTAL 0.3 mg/dL (0.2-1.0); TOTAL PROTEIN 6.7 g/dL (6.4-8.2)
[2018-03-17] MEDS ORDERED: KETOROLAC 30 MG/1 ML ONE (01:13)
[2018-03-17] MEDS ORDERED: KETOROLAC 30 MG/1 ML IVPush ONE (01:30)
[2018-03-17 03:05] VITALS: BP 150/82
[2018-03-17] MEDS ORDERED: ALBUTEROL/IPRATROPIUM 2.5MG/0.5MG, 3 ML NPPB PRN (05:00)
[2018-03-17 05:04] LABS: TROPONIN I < 0.015 ng/mL (0.000-0.045)
[2018-03-17 07:00] VITALS: BP 127/72
[2018-03-17] MEDS ORDERED: ONDANSETRON ODT 4 MG PO PRN (07:00)
[2018-03-17] MEDS ORDERED: DOCUSATE 100 MG CAPSULE PO PRN (07:00)
[2018-03-17] MEDS ORDERED: TRAZODONE 50MG TABLET PO PRN (07:00)
[2018-03-17] MEDS ORDERED: ENALAPRILAT 1.25 MG/ML, 2ML IVPush PRN (07:00)
[2018-03-17] MEDS ORDERED: LABETALOL 5MG/ML, 20ML IVPush PRN (07:00)
[2018-03-17] MEDS ORDERED: GUAIFENESIN/DM 200-20MG, 10ML UDC PO PRN (07:00)
[2018-03-17] MEDS ORDERED: ONDANSETRON 2MG/ML, 2ML IVPush PRN (07:00)
[2018-03-17] MEDS: ACETAMINOPHEN 325 MG TABLET PO PRN ×2 (07:42→23:21)
[2018-03-17] MEDS: ALBUTEROL/IPRATROPIUM 2.5MG/0.5MG, 3 ML NPPB SCH ×4 (07:44→18:48)
[2018-03-17] MEDS: LISINOPRIL 20 MG TABLET PO SCH (08:54)
[2018-03-17] MEDS: DOXYCYCLINE 100MG CAP PO SCH ×2 (08:54→20:58)
[2018-03-17] MEDS: HYDROCHLOROTHIAZIDE 12.5 MG CAPSULE PO SCH (08:54)
[2018-03-17] MEDS ORDERED: methylPREDNISolone SOD SUCC 40 MG/ML IV SCH ×2 (09:00→16:00)
[2018-03-17 10:25] LABS: TROPONIN I < 0.015 ng/mL (0.000-0.045)
[2018-03-17] MEDS ORDERED: ENOXAPARIN 40 MG/0.4 ML SQ SCH (12:30)
[2018-03-17] MEDS: GUAIFENESIN 200 MG TABLET PO SCH ×3 (13:04→20:58)
[2018-03-17 15:21] VITALS: BP 131/68
[2018-03-17] MEDS: methylPREDNISolone SOD SUCC 125 MG/2 ML IVPush SCH ×2 (16:35→20:58)
[2018-03-17 19:00] VITALS: BP 142/71
[2018-03-18 01:39] VITALS: BP 134/74
[2018-03-18] MEDS: methylPREDNISolone SOD SUCC 125 MG/2 ML IVPush SCH ×2 (05:03→10:49)
[2018-03-18] MEDS: GUAIFENESIN 200 MG TABLET PO SCH ×2 (05:03→10:49)
[2018-03-18 05:06] LABS: CHLORIDE 106 mmol/L (98-107); MEAN CORPUSCULAR HEMOGLOBIN 28.2 pg (27.0-34.8); MEAN CORPUSCULAR HGB CONC 33.1 g/dL (32.4-35.8); MEAN CORPUSCULAR VOLUME 85.2 fL (80-100); PLATELET COUNT 263 x10^3/uL (130-400); RED BLOOD COUNT 4.54 x10^6/uL (3.82-5.3); RED CELL DISTRIBUTION WIDTH 16.9 % (9.6-15.2)
[2018-03-18 05:15] LABS: ALANINE AMINOTRANSFERASE 20 U/L (12-78); ALBUMIN 2.5 g/dL (3.4-5.0); ALKALINE PHOSPHATASE 62 U/L (45-117); ANION GAP 6 mmol/L (5-15); BILIRUBIN,TOTAL 0.3 mg/dL (0.2-1.0); CALCIUM 8.4 mg/dL (8.5-10.1); CREATININE 0.75 mg/dL (0.55-1.02); TOTAL PROTEIN 6.2 g/dL (6.4-8.2)
[2018-03-18 05:40] LABS: BASOPHILS % (AUTO) 0 % (0-1); EOSINOPHILS % (AUTO) 0 % (1-7); LYMPHOCYTES # (AUTO) 0.58 x10^3/uL (1-3.4); LYMPHOCYTES % (AUTO) 4 % (22-44); MD SCAN; MONOCYTES # (AUTO) 0.36 x10^3/uL (0.2-0.8); MONOCYTES % (AUTO) 2 % (2-9); NEUTROPHILS # (AUTO) 14.07 x10^3/uL (1.8-6.8); NEUTROPHILS % (AUTO) 94 % (42-75)
[2018-03-18] MEDS: ALBUTEROL/IPRATROPIUM 2.5MG/0.5MG, 3 ML NPPB SCH ×3 (07:00→14:27)
[2018-03-18] MEDS: ACETAMINOPHEN 325 MG TABLET PO PRN (07:20)
[2018-03-18 08:30] VITALS: BP 148/82
[2018-03-18] MEDS: DOXYCYCLINE 100MG CAP PO SCH (09:26)
[2018-03-18] MEDS: HYDROCHLOROTHIAZIDE 12.5 MG CAPSULE PO SCH (09:26)
[2018-03-18] MEDS: LISINOPRIL 20 MG TABLET PO SCH (09:27)
[2018-03-18] MEDS ORDERED: GUAI200T3 PO (11:11)
[2018-03-18] MEDS ORDERED: TIOT18CA INH (11:11)
[2018-03-18] MEDS ORDERED: ALBU18HF INH (11:11)
== END 2018-03-18 11:30 | disposition home or self-care (01) | DRG 189 ==
LOC: ED 23:59 → EDIP 03-17 04:50 → 5SO 03-17 05:06
PROVIDERS: ADMIT Internal Medicine; ATTEND Internal Medicine
DX: J96.01 Acute respiratory failure with hypoxia (principal); J44.1 Chronic obstructive pulmonary disease with (acute) exacerbation; E44.1 Mild protein-calorie malnutrition; E86.0 Dehydration; I10 Essential (primary) hypertension; B18.2 Chronic viral hepatitis C; F17.210 Nicotine dependence, cigarettes, uncomplicated; I44.7 Left bundle-branch block, unspecified; Z71.6 Tobacco abuse counseling; Z59.0 Homelessness; Z91.14 Patient's other noncompliance with medication regimen; Z99.3 Dependence on wheelchair; Z56.0 Unemployment, unspecified; Z68.28 Body mass index [BMI] 28.0-28.9, adult
CPT/HCPCS: 36415; 71045; 80053; 84484; 85025; 87040; 93005; 94640; 96361; 96374; 96375; J1650; J1885; J7613; J7620; J2920; J2930; J7030

== ENCOUNTER 2018-03-29 17:51 | Emergency (ER) | payer MEDICAID ==
[~2018-03-29] VITALS: Ht 165.1 cm; Wt 69.0 kg
[~2018-03-29 17:51] MED LIST changes: +ALBU18HF INH; +GUAI200T3 PO
[2018-03-29] MEDS ORDERED: BACITRACIN ZINC OINT 500U/GM, 0.9 GM ONE (18:09)
[2018-03-29 18:48] VITALS: BP 119/71
== END 2018-03-29 19:15 | disposition home or self-care (01) ==
LOC: ED 18:00
DX: S22.31XA Fracture of one rib, right side, initial encounter for closed fracture (principal); J44.9 Chronic obstructive pulmonary disease, unspecified; I10 Essential (primary) hypertension; Y04.8XXA Assault by other bodily force, initial encounter; Y93.89 Activity, other specified; Y92.410 Unspecified street and highway as the place of occurrence of the external cause; Y99.8 Other external cause status
CPT/HCPCS: 72072; 99284

== ENCOUNTER 2018-06-06 17:15 | Emergency (ER) | payer MEDICAID ==
[~2018-06-06] VITALS: Ht 165.1 cm; Wt 65.0 kg
[~2018-06-06 17:15] MED LIST changes: -AMLO5TAB2 PO; +AMLO5TAB7 PO
[2018-06-06 17:45] VITALS: BP 136/82
[2018-06-06] MEDS ORDERED: KETOROLAC 30 MG/1 ML IM ONE (18:00)
[2018-06-06] MEDS ORDERED: KETOROLAC 30 MG/1 ML ONE (18:03)
== END 2018-06-06 18:41 | disposition home or self-care (01) ==
LOC: ED 18:35
DX: M77.11 Lateral epicondylitis, right elbow (principal); J44.9 Chronic obstructive pulmonary disease, unspecified; I10 Essential (primary) hypertension
CPT/HCPCS: 73080; 96372; 99284; J1885

== ENCOUNTER 2018-10-16 06:13 | Observation (INO) | payer MEDICAID ==
[~2018-10-16] VITALS: Ht 165.1 cm; Wt 77.8 kg
[~2018-10-16 06:13] MED LIST changes: +AMLO-150 PO; -AMLO5TAB7 PO
--- NOTE | 2018-10-16 06:38 | NUR ---
PT PRESENTED WITH C/O SOB AND DIFFICULTY BREATHING X SEVERAL DAYS. PT HAS PMH OF COPD AND ASTHMA. PT HAS HAD NON-PRODUCTIVE COUGH. PT DENIES FEVER OR SORE THROAT, BUT HAS INTERMITTENT HEADACHE. PT TREATED HERE LAST WEEK FOR BRONCHITIS, AND STATES THAT SHE TOOK ALL OF HER ANTIBIOTICS. MONITORS APPLIED, SIDERAILS UP X2, CALL LIGHT WITHIN REACH. ERP AT BEDSIDE FOR EVAL
[2018-10-16] MEDS ORDERED: ALBUTEROL 0.5%, 20ML NPPB SCH (07:00)
[2018-10-16] MEDS ORDERED: IPRATROPIUM 0.5 MG/2.5 ML INHA NPPB ONE (07:00)
[2018-10-16] MEDS ORDERED: SODIUM CHLORIDE FLUSH 10ML SYR IVF ONE (07:00)
--- NOTE | 2018-10-16 07:09 | NUR ---
REPORT GIVEN TO MARLO FREEDMAN
--- NOTE | 2018-10-16 07:09 | NUR ---
Recieved bedside report from MARLO Charles. All questions answered. Assuming care of pt. Pt sleeping on gurney connected to all monitors. All safety measures in place. Pt has strong cough at bedside and has been placed on a venti mask on 3L nasal cannula to maintain oxygen saturation above 90%. RT has been paged. Pt has medicaitons at bedside to take once pt is not coughing. Pt has call light within reach. Pt's skin is pink, warm, and dry. Pt is AOX4.
[2018-10-16] MEDS ORDERED: ALBUTEROL 0.5%, 20ML ONE (07:16)
[2018-10-16 07:21] LABS: RAPID INFLUENZA A Negative (Negative); RAPID INFLUENZA B Negative (Negative)
--- NOTE | 2018-10-16 08:00 | NUR ---
Pt recieving respiratory therapy treatment at bedside. Lab and ED staff RNs attempting to collect lab work, blood cultures, and IV placement. Pt states, "I have a migraine." All safety measures in place. Call light within reach.
[2018-10-16 08:15] LABS: BASOPHILS # (AUTO) 0.03 x10^3/uL (0-0.1); BASOPHILS % (AUTO) 0 % (0-1); EOSINOPHILS # (AUTO) 0.07 x10^3/uL (0-0.4); EOSINOPHILS % (AUTO) 1 % (1-7); LYMPHOCYTES # (AUTO) 2.08 x10^3/uL (1-3.4); LYMPHOCYTES % (AUTO) 14 % (22-44); MD NO; MEAN CORPUSCULAR HEMOGLOBIN 29.4 pg (27.0-34.8); MEAN CORPUSCULAR HGB CONC 33.1 g/dL (32.4-35.8); MEAN CORPUSCULAR VOLUME 88.8 fL (80-100); MEAN PLATELET VOLUME 8.7 fL (7.4-10.4); MONOCYTES # (AUTO) 1.12 x10^3/uL (0.2-0.8); MONOCYTES % (AUTO) 7 % (2-9); NEUTROPHILS # (AUTO) 11.76 x10^3/uL (1.8-6.8); NEUTROPHILS % (AUTO) 78 % (42-75); PLATELET COUNT 342 x10^3/uL (130-400); RED BLOOD COUNT 4.91 x10^6/uL (3.82-5.3); RED CELL DISTRIBUTION WIDTH 13.5 % (9.6-15.2)
[2018-10-16 08:26] LABS: ANION GAP 7 mmol/L (5-15); CALCIUM 8.4 mg/dL (8.5-10.1); CHLORIDE 108 mmol/L (98-107); CREATININE 0.81 mg/dL (0.55-1.02)
[2018-10-16] MEDS ORDERED: high blood pressure PO (08:28)
--- NOTE | 2018-10-16 08:28 | NUR ---
Pt stand by assist to bedside commode. Pt back in bed and provided new lines and gown. Pt appreciative. Pt provided pillow and warm blankets and blanket warmer. Pt appreciative.
[2018-10-16 08:31] LABS: ALANINE AMINOTRANSFERASE 19 U/L (12-78); ALKALINE PHOSPHATASE 79 U/L (45-117); BILIRUBIN,TOTAL 0.2 mg/dL (0.2-1.0); TROPONIN I < 0.015 ng/mL (0.000-0.045)
--- NOTE | 2018-10-16 09:41 | NUR ---
Provided report to MARLO Pearson. All questions answered. Pt ready to transfer to floor.
--- NOTE | 2018-10-16 10:04 | NUR ---
Pt transfered to floor from ED and left with all personal belongings.
[2018-10-16 10:05] VITALS: BP 128/63
[2018-10-16] MEDS ORDERED: ACETAMINOPHEN 325 MG TABLET PO PRN (11:00)
[2018-10-16] MEDS ORDERED: DOCUSATE 100 MG CAPSULE PO PRN (11:00)
[2018-10-16] MEDS ORDERED: FLUTICASONE/VILANTEROL 200-25MCG/INH INH SCH (11:00)
[2018-10-16] MEDS ORDERED: GUAIFENESIN/DM 200-20MG, 10ML UDC PO PRN (11:00)
[2018-10-16] MEDS: BUDESONIDE 0.5 MG/2 ML INHA INH SCH ×3 (11:00→22:30)
[2018-10-16] MEDS ORDERED: ONDANSETRON ODT 4 MG PO PRN (11:00)
[2018-10-16] MEDS ORDERED: hydrALAzine 20 MG/ML, 1ML IVPush PRN (11:00)
[2018-10-16] MEDS ORDERED: NICOTINE 14MG/24 HR PATCH.TD24 TD SCH (11:00)
[2018-10-16] MEDS: LISINOPRIL 20 MG TABLET PO SCH (11:36)
[2018-10-16] MEDS: HYDROCHLOROTHIAZIDE 12.5 MG CAPSULE PO SCH (11:36)
[2018-10-16] MEDS: HEPARIN 5,000 UNITS/ML, 1ML SQ SCH ×2 (11:37→20:18)
[2018-10-16] MEDS: methylPREDNISolone SOD SUCC 40 MG/ML IVPush SCH ×3 (11:37→23:20)
[2018-10-16] MEDS: GUAIFENESIN/DM 200-20MG, 10ML UDC PO PRN ×3 (11:37→22:17)
[2018-10-16] MEDS: IBUPROFEN 600 MG TABLET PO PRN (11:38)
[2018-10-16 12:36] LABS: CULTURE INDICATED? YES; MICROSCOPIC INDICATED
[2018-10-16 12:42] LABS: AMPHETAMINE SCREEN, URINE Positive (Negative); BARBITURATE SCREEN, URINE Negative (Negative); BENZODIAZEPINE SCREEN, URINE Negative (Negative); CANNABINOID SCREEN, URINE Negative (Negative); COCAINE SCREEN, URINE Negative (Negative); METHADONE SCREEN, URINE Negative (Negative); OPIATE SCREEN, URINE Negative (Negative)
[2018-10-16 13:27] VITALS: BP 117/66
[2018-10-16 14:42] VITALS: BP 156/87
[2018-10-16] MEDS: ALBUTEROL/IPRATROPIUM 2.5MG/0.5MG, 3 ML NPPB SCH ×4 (15:00→22:30)
[2018-10-16] MEDS ORDERED: ALBUTEROL SULFATE INH SCH (16:00)
[2018-10-16 20:41] VITALS: BP 139/73
[2018-10-17] MEDS: IBUPROFEN 600 MG TABLET PO PRN ×2 (01:51→07:48)
[2018-10-17 01:53] VITALS: BP 134/73
[2018-10-17] MEDS: ALBUTEROL/IPRATROPIUM 2.5MG/0.5MG, 3 ML NPPB SCH ×2 (02:20→06:50)
[2018-10-17 02:23] VITALS: BP 157/77
[2018-10-17] MEDS: HEPARIN 5,000 UNITS/ML, 1ML SQ SCH (04:43)
[2018-10-17] MEDS: methylPREDNISolone SOD SUCC 40 MG/ML IVPush SCH ×2 (04:44→11:00)
[2018-10-17 04:48] LABS: BASOPHILS % (AUTO) 0 % (0-1); EOSINOPHILS % (AUTO) 0 % (1-7); LYMPHOCYTES # (AUTO) 0.44 x10^3/uL (1-3.4); LYMPHOCYTES % (AUTO) 4 % (22-44); MD NO; MEAN CORPUSCULAR HEMOGLOBIN 29.8 pg (27.0-34.8); MEAN CORPUSCULAR HGB CONC 33.5 g/dL (32.4-35.8); MEAN CORPUSCULAR VOLUME 89.1 fL (80-100); MEAN PLATELET VOLUME 8.8 fL (7.4-10.4); MONOCYTES # (AUTO) 0.34 x10^3/uL (0.2-0.8); MONOCYTES % (AUTO) 3 % (2-9); NEUTROPHILS # (AUTO) 11.22 x10^3/uL (1.8-6.8); NEUTROPHILS % (AUTO) 94 % (42-75); PLATELET COUNT 299 x10^3/uL (130-400); RED CELL DISTRIBUTION WIDTH 13.7 % (9.6-15.2)
[2018-10-17 04:59] LABS: CHLORIDE 107 mmol/L (98-107)
[2018-10-17 05:02] LABS: ANION GAP 4 mmol/L (5-15); CREATININE 0.74 mg/dL (0.55-1.02)
[2018-10-17] MEDS: BUDESONIDE 0.5 MG/2 ML INHA INH SCH (06:50)
[2018-10-17] MEDS: GUAIFENESIN/DM 200-20MG, 10ML UDC PO PRN (07:47)
[2018-10-17] MEDS: HYDROCHLOROTHIAZIDE 12.5 MG CAPSULE PO SCH (07:48)
[2018-10-17] MEDS: LISINOPRIL 20 MG TABLET PO SCH (07:49)
[2018-10-17 07:50] VITALS: BP 125/66
[2018-10-17] MEDS ORDERED: ALBUTEROL/IPRATROPIUM 2.5MG/0.5MG, 3 ML NPPB SCH (10:00)
[2018-10-17] MEDS ORDERED: METH4TAB2 PO (11:38)
[2018-10-17] MEDS ORDERED: FLUT1AER INH (11:38)
[2018-10-17] MEDS ORDERED: LISI1TAB5 PO (11:38)
[2018-10-17] MEDS ORDERED: ALBU18HF INH (11:38)
[2018-10-17] MEDS ORDERED: TIOT18CA INH (11:38)
[2018-10-17 12:38] VITALS: BP 128/72
[2018-10-17] MEDS ORDERED: BENZ100C PO (12:50)
== END 2018-10-17 14:45 | disposition home or self-care (01) ==
LOC: ED 06:55 → INTOOBSV 09:19 → 3NW 09:19
PROVIDERS: ADMIT Internal Medicine; ATTEND Internal Medicine
DX: J44.1 Chronic obstructive pulmonary disease with (acute) exacerbation (principal); J96.01 Acute respiratory failure with hypoxia; I44.7 Left bundle-branch block, unspecified; F15.90 Other stimulant use, unspecified, uncomplicated; I10 Essential (primary) hypertension; D72.829 Elevated white blood cell count, unspecified; Z86.14 Personal history of Methicillin resistant Staphylococcus aureus infection; F17.200 Nicotine dependence, unspecified, uncomplicated
CPT/HCPCS: 36415; 71045; 80048; 80053; 80307; 81001; 83605; 83880; 84484; 85025; 87040; 87086; 87400; 90471; 90656; 93005; 94640; 94644; 96372; 96374; 96376; 99284; G0378; J1644; J2920; J7512; J7620; J7626; J7644

== ENCOUNTER 2019-05-10 14:30 | Emergency (ER) | payer MEDICAID ==
[~2019-05-10] VITALS: Ht 165.1 cm; Wt 63.6 kg
[2019-05-10 14:33] VITALS: BP 117/76
== END 2019-05-10 15:16 | disposition left against medical advice (07) ==
LOC: ED 15:10
DX: S00.81XA Abrasion of other part of head, initial encounter (principal); S09.90XA Unspecified injury of head, initial encounter; J44.9 Chronic obstructive pulmonary disease, unspecified; I10 Essential (primary) hypertension; W22.8XXA Striking against or struck by other objects, initial encounter; Y93.89 Activity, other specified; Y92.89 Other specified places as the place of occurrence of the external cause; Y99.8 Other external cause status
CPT/HCPCS: 99281

== ENCOUNTER 2019-09-04 23:42 | Inpatient (IN) | payer MEDICAID ==
[~2019-09-04] VITALS: Ht 165.1 cm; Wt 81.2 kg
[~2019-09-04 23:42] MED LIST changes: +BENZ100C PO; -DOXY100T10 PO; +DOXY100T23 PO; +FLUT1AER INH; -GUAI200T3 PO; +GUAI200T37 PO; +LISI1TAB19 PO; -LISI1TAB5 PO; +high blood pressure PO
[2019-09-04] MEDS ORDERED: methylPREDNISolone SOD SUCC 125 MG/2 ML ONE (23:54)
[2019-09-05] MEDS ORDERED: ALBUTEROL/IPRATROPIUM 2.5MG/0.5MG, 3 ML NEB ONE
[2019-09-05] MEDS ORDERED: SODIUM CHLORIDE FLUSH 10ML SYR IVF ONE
[2019-09-05] MEDS ORDERED: methylPREDNISolone SOD SUCC 125 MG/2 ML IVPush ONE
[2019-09-05] MEDS ORDERED: SODIUM CHLORIDE 0.9% 1,000ML IVBOLUS ONE
[2019-09-05] MEDS ORDERED: MAGNESIUM SULFATE PMX 2GM/50ML 50 ML IV ONE
[2019-09-05 00:20] LABS: BASOPHILS # (AUTO) 0.04 x10^3/uL (0-0.1); BASOPHILS % (AUTO) 1 % (0-1); EOSINOPHILS % (AUTO) 2 % (1-7); LYMPHOCYTES # (AUTO) 2.35 x10^3/uL (1-3.4); LYMPHOCYTES % (AUTO) 27 % (22-44); MD NO; MEAN CORPUSCULAR HGB CONC 32.8 g/dL (32.4-35.8); MEAN CORPUSCULAR VOLUME 91.3 fL (80-100); MEAN PLATELET VOLUME 8.5 fL (7.4-10.4); MONOCYTES # (AUTO) 0.49 x10^3/uL (0.2-0.8); MONOCYTES % (AUTO) 6 % (2-9); NEUTROPHILS # (AUTO) 5.76 x10^3/uL (1.8-6.8); NEUTROPHILS % (AUTO) 65 % (42-75); PLATELET COUNT 269 x10^3/uL (130-400); RED BLOOD COUNT 5.16 x10^6/uL (3.82-5.3); RED CELL DISTRIBUTION WIDTH 14.2 % (9.6-15.2)
--- NOTE | 2019-09-05 00:25 | NUR ---
THIS IS A 53 YO FEMALE BIB [facility] FOR ASTHMA EXACERBATION DUE TO COLD/COUGH SYMPTOMS FOR PAST WEEK WITH INCREASED WORK OF BREATHING. PATIENT STATES SHE RAN OUT OF HER ALBUTEROL MEDICATION AND HAS NOT TAKEN ANYTHING ELSE. PATIENT WAS GIVEN TWO DUONED TREATMENTS EN ROUTE WITH [facility] AND ON 6L FACE MASK. PATIENT HAS HX OF COPD, ASTHMA AND HTN. PATIENT HAS HX OF METHAMPHETAMINE USE AND "TRIES TO SMOKE CIGARETTES". PATIENT IS HYPERTENSIVE IN 160'S/100'S, AUDIBLE WHEEZES BOTH INSPIRATORY AND EXPIRATORY, ON FACE MASK AT 6L. EKG DONE, BBB NOTED, ON THEOLOGY PROFESSOR, CONTINUOUS SPO2, CYCLE BP Q1HR. CALL LIGHT IN REACH. ATTEMPTING TO START PIV LINE.
[2019-09-05] MEDS ORDERED: ALBUTEROL/IPRATROPIUM 2.5MG/0.5MG, 3 ML ONE (00:27)
[2019-09-05 00:29] LABS: ALANINE AMINOTRANSFERASE 35 U/L (12-78); ALBUMIN 3.3 g/dL (3.4-5.0); ANION GAP 5 mmol/L (5-15); CALCIUM 8.8 mg/dL (8.5-10.1); CHLORIDE 108 mmol/L (98-107); CREATININE 0.82 mg/dL (0.55-1.02)
[2019-09-05 00:31] LABS: ALKALINE PHOSPHATASE 77 U/L (45-117); BILIRUBIN,TOTAL 0.4 mg/dL (0.2-1.0); TOTAL PROTEIN 7.8 g/dL (6.4-8.2)
--- NOTE | 2019-09-05 00:40 | NUR ---
SECOND RN TO ATTEMPT ULTRASOUND GUIDED PIV
[2019-09-05] MEDS ORDERED: MAGNESIUM SULFATE PMX 2GM/50ML 50 ML ONE (00:46)
--- NOTE | 2019-09-05 01:24 | NUR ---
UNABLE TO OBTAIN PIV ACCESS AT THIS TIME. PATIENT GIVEN PO STEROID, TOLERATED WELL.
--- NOTE | 2019-09-05 01:44 | NUR ---
PIV STARTED BY MARLO JACKSON. PATIENT MEDICATED PER EMAR, TOLERATED WELL. NEEDS ADDRESSED.
[2019-09-05] MEDS ORDERED: ALBUTEROL SULFATE 2.5 MG/3 ML NPPB ONE (02:00)
--- NOTE | 2019-09-05 02:13 | NUR ---
BEDSIDE REPORT GIVEN TO MARLO LAURENT. PLAN OF CARE DISCUSSED.
--- NOTE | 2019-09-05 02:27 | NUR ---
REPORT RECEIVED, POC DISCUSSED, CARE ASSUMED. PT RESTING QUIETLY, NAD.
[2019-09-05] MEDS ORDERED: ALBUTEROL/IPRATROPIUM 2.5MG/0.5MG, 3 ML NPPB PRN (02:30)
[2019-09-05] MEDS ORDERED: ONDANSETRON ODT 4 MG PO PRN (02:30)
[2019-09-05] MEDS ORDERED: methylPREDNISolone SOD SUCC 40 MG/ML ONE ×2 (03:04→10:24)
[2019-09-05] MEDS: methylPREDNISolone SOD SUCC 40 MG/ML IV SCH ×3 (03:08→18:08)
[2019-09-05] MEDS ORDERED: GUAIFENESIN 200 MG TABLET ONE ×2 (06:26→10:24)
[2019-09-05] MEDS: GUAIFENESIN 200 MG TABLET PO SCH ×4 (06:28→19:44)
[2019-09-05 06:32] LABS: RAPID INFLUENZA A Negative (Negative); RAPID INFLUENZA B Negative (Negative)
--- NOTE | 2019-09-05 06:58 | NUR ---
REPORT TO DANY SELLERS. POC DISCUSSED, CARE RELEASED. PT RESTING QUIETLY AT THIS TIME. NAD. NO FAMILY AT BEDSIDE.
--- NOTE | 2019-09-05 07:00 | NUR ---
SBAR RPT REC'D FROM MARLO LAURENT AND PT CARE ASSUMED. PT RESTING WITH EYES CLOSED, NAD NOTED
[2019-09-05 07:03] LABS: AMPHETAMINE SCREEN, URINE Positive (Negative); BARBITURATE SCREEN, URINE Negative (Negative); BENZODIAZEPINE SCREEN, URINE Negative (Negative); CANNABINOID SCREEN, URINE Negative (Negative); COCAINE SCREEN, URINE Negative (Negative); METHADONE SCREEN, URINE Negative (Negative); OPIATE SCREEN, URINE Negative (Negative)
--- NOTE | 2019-09-05 08:00 | NUR ---
PT OOB TO CHAIR WITH RN ASSIST. HOSPITAL BED PLACED IN ROOM AND PT TRANSFERED FROM CHAIR TO BED WITH RN ASSIST. PT EXTREMELY WEAK, USES WHEELCHAIR AT HOME. ASSESSMENT COMPLETED NOTED. O2 2L NC IN PLACE AND CONTINUOUS PULSE OX MONITORING IN PLACE. CALL LIGHT W/I REACH. POC DISCUSSED AND QUESTIONS ANSWERED. PT WITH SHAY 04/29, NO CURRENT ORDERS FOR PAIN MEDICATION, I WILL CONTACT MD FOR OFRDERS. PT AWARE
--- NOTE | 2019-09-05 08:08 | NUR ---
CONTACTED DR GARCIA REGARDING PT C/O SHAY. NEW ORDERS REC'D.
--- NOTE | 2019-09-05 09:11 | NUR ---
REPORT RECEIVED FROM MARLO SAENZ. PT RESTING ON HOSPITAL BED, RESPS EVEN, MILDLY LABORED. PER MARLO SAENZ THIS HAS BEEN PT'S BASELINE RESPIRATORY EFFORT. CONTINUOUS PULSE OXIMETRY READING IN PLACE. PT REPORTING HEADACHE, HOSPITALIST MD GARCIA AWARE. PT TO BE MEDICATED WITH PRN IBUPROFEN.
--- NOTE | 2019-09-05 09:11 | NUR ---
CONTACTED DR GARCIA ORDER FOR TYLENOL AND MOTRIN HAS NOT YET BEEN ORDERED.
[2019-09-05] MEDS ORDERED: ACETAMINOPHEN 500 MG TABLET PO PRN (09:30)
--- NOTE | 2019-09-05 09:55 | NUR ---
PT SLEEPING, RESPS EVEN AND UNLABORED. THIS RN WILL MEDICATE WITH PRN IBUPROFEN IF NEEDED WHEN PT AWAKENS.
[2019-09-05] MEDS ORDERED: GUAIFENESIN ER 600 MG TABLET ONE (10:24)
--- NOTE | 2019-09-05 11:00 | NUR ---
PT UP TO BEDSIDE COMMODE TO VOID WITH RN ASSIST, ASSISTED BACK TO BED. SPO2 MONITOR REMAINS IN PLACE. PT A&O, RESPS EVEN AND UNLABORED, NADN.
--- NOTE | 2019-09-05 11:41 | NUR ---
report called to MARLO Chow, pt awaiting transport to room 367.
--- NOTE | 2019-09-05 12:16 | NUR ---
report to break MARLO Enriquez.
--- NOTE | 2019-09-05 12:59 | NUR ---
pt transferred to floor with EDT. pt a&o, resps even and unlabored, nadn at time of transport.
[2019-09-05 13:26] VITALS: BP 150/84
[2019-09-05 18:57] VITALS: BP 143/75
[2019-09-05] MEDS: IBUPROFEN 600 MG TABLET PO PRN (19:55)
[2019-09-06 00:51] VITALS: BP 122/68
[2019-09-06] MEDS: methylPREDNISolone SOD SUCC 40 MG/ML IV SCH ×3 (02:54→17:58)
[2019-09-06 05:58] LABS: ANION GAP 5 mmol/L (5-15); CALCIUM 8.3 mg/dL (8.5-10.1); CHLORIDE 109 mmol/L (98-107)
[2019-09-06 06:01] LABS: CREATININE 0.78 mg/dL (0.55-1.02)
[2019-09-06 06:16] LABS: BASOPHILS # (AUTO) 0.02 x10^3/uL (0-0.1); BASOPHILS % (AUTO) 0 % (0-1); EOSINOPHILS % (AUTO) 0 % (1-7); LYMPHOCYTES # (AUTO) 0.57 x10^3/uL (1-3.4); LYMPHOCYTES % (AUTO) 4 % (22-44); MD NO; MEAN CORPUSCULAR HEMOGLOBIN 29.6 pg (27.0-34.8); MEAN CORPUSCULAR HGB CONC 32.7 g/dL (32.4-35.8); MEAN CORPUSCULAR VOLUME 90.5 fL (80-100); MEAN PLATELET VOLUME 8.7 fL (7.4-10.4); MONOCYTES # (AUTO) 0.16 x10^3/uL (0.2-0.8); MONOCYTES % (AUTO) 1 % (2-9); NEUTROPHILS # (AUTO) 12.35 x10^3/uL (1.8-6.8); NEUTROPHILS % (AUTO) 94 % (42-75); PLATELET COUNT 244 x10^3/uL (130-400); RED BLOOD COUNT 4.58 x10^6/uL (3.82-5.3)
[2019-09-06] MEDS: ENOXAPARIN 40 MG/0.4 ML SQ SCH (06:18)
[2019-09-06] MEDS: GUAIFENESIN 200 MG TABLET PO SCH ×4 (06:19→20:19)
[2019-09-06] MEDS: IBUPROFEN 600 MG TABLET PO PRN ×2 (09:29→16:19)
[2019-09-06 09:33] VITALS: BP 155/82
[2019-09-06 15:58] VITALS: BP 153/73
[2019-09-06 20:08] VITALS: BP 168/89
[2019-09-07 00:31] VITALS: BP 171/95
[2019-09-07] MEDS: IBUPROFEN 600 MG TABLET PO PRN (00:31)
[2019-09-07 01:10] VITALS: BP 169/92
[2019-09-07] MEDS: methylPREDNISolone SOD SUCC 40 MG/ML IV SCH ×4 (03:18→20:30)
[2019-09-07] MEDS: GUAIFENESIN 200 MG TABLET PO SCH ×4 (05:51→21:32)
[2019-09-07] MEDS: ENOXAPARIN 40 MG/0.4 ML SQ SCH (05:51)
[2019-09-07 07:47] LABS: ALANINE AMINOTRANSFERASE 36 U/L (12-78); ALBUMIN 2.8 g/dL (3.4-5.0); ANION GAP 5 mmol/L (5-15); CALCIUM 8.2 mg/dL (8.5-10.1); CHLORIDE 109 mmol/L (98-107); CREATININE 0.76 mg/dL (0.55-1.02)
[2019-09-07 07:49] LABS: ALKALINE PHOSPHATASE 60 U/L (45-117); BILIRUBIN,TOTAL 0.4 mg/dL (0.2-1.0); TOTAL PROTEIN 6.9 g/dL (6.4-8.2)
[2019-09-07 07:50] LABS: MEAN CORPUSCULAR HEMOGLOBIN 30.5 pg (27.0-34.8); MEAN CORPUSCULAR HGB CONC 32.9 g/dL (32.4-35.8); MEAN CORPUSCULAR VOLUME 92.5 fL (80-100); PLATELET COUNT 257 x10^3/uL (130-400); RED BLOOD COUNT 4.81 x10^6/uL (3.82-5.3); RED CELL DISTRIBUTION WIDTH 14.9 % (9.6-15.2)
[2019-09-07 08:36] LABS: BASOPHILS % (AUTO) 0 % (0-1); EOSINOPHILS # (AUTO) 0.13 x10^3/uL (0-0.4); EOSINOPHILS % (AUTO) 1 % (1-7); LYMPHOCYTES # (AUTO) 0.44 x10^3/uL (1-3.4); LYMPHOCYTES % (AUTO) 3 % (22-44); MD SCAN; MONOCYTES # (AUTO) 0.17 x10^3/uL (0.2-0.8); MONOCYTES % (AUTO) 1 % (2-9); NEUTROPHILS % (AUTO) 95 % (42-75)
[2019-09-07] MEDS: DOXYCYCLINE 100MG TABLET PO SCH ×2 (08:44→19:57)
[2019-09-07 09:37] VITALS: BP 132/74
[2019-09-07 15:17] VITALS: BP 169/95
[2019-09-07] MEDS: POTASSIUM ACID PHOSPHATE 500 MG TABLET.SOL PO SCH (18:37)
[2019-09-07 19:02] VITALS: BP 160/82
[2019-09-07] MEDS ORDERED: MEDROL 4MG DOSEPAK PO SCH (21:30)
[2019-09-08] MEDS: POTASSIUM ACID PHOSPHATE 500 MG TABLET.SOL PO SCH ×3 (00:24→11:55)
[2019-09-08 00:45] VITALS: BP 165/93
[2019-09-08] MEDS: GUAIFENESIN 200 MG TABLET PO SCH ×3 (06:08→15:30)
[2019-09-08] MEDS: ENOXAPARIN 40 MG/0.4 ML SQ SCH (06:08)
[2019-09-08 08:02] LABS: MEAN CORPUSCULAR HEMOGLOBIN 29.6 pg (27.0-34.8); MEAN CORPUSCULAR HGB CONC 32.6 g/dL (32.4-35.8); MEAN CORPUSCULAR VOLUME 90.9 fL (80-100); MEAN PLATELET VOLUME 8.2 fL (7.4-10.4); PLATELET COUNT 280 x10^3/uL (130-400); RED BLOOD COUNT 5.01 x10^6/uL (3.82-5.3)
[2019-09-08 08:09] LABS: ANION GAP 2 mmol/L (5-15); CALCIUM 8.3 mg/dL (8.5-10.1); CHLORIDE 108 mmol/L (98-107); CREATININE 0.68 mg/dL (0.55-1.02)
[2019-09-08 08:20] LABS: BASOPHILS # (AUTO) 0.02 x10^3/uL (0-0.1); BASOPHILS % (AUTO) 0 % (0-1); EOSINOPHILS % (AUTO) 0 % (1-7); LYMPHOCYTES # (AUTO) 0.98 x10^3/uL (1-3.4); LYMPHOCYTES % (AUTO) 9 % (22-44); MD SCAN; MONOCYTES # (AUTO) 0.57 x10^3/uL (0.2-0.8); MONOCYTES % (AUTO) 5 % (2-9); NEUTROPHILS # (AUTO) 9.13 x10^3/uL (1.8-6.8); NEUTROPHILS % (AUTO) 85 % (42-75)
[2019-09-08 08:55] VITALS: BP 150/92
[2019-09-08] MEDS ORDERED: LISINOPRIL 20 MG TABLET PO SCH (09:00)
[2019-09-08] MEDS ORDERED: HYDROCHLOROTHIAZIDE 12.5 MG CAPSULE PO SCH (09:00)
[2019-09-08] MEDS: DOXYCYCLINE 100MG TABLET PO SCH (09:06)
[2019-09-08 14:55] VITALS: BP_SYST 155
== END 2019-09-08 16:59 | disposition left against medical advice (07) | DRG 140 ==
LOC: ED 09-05 00:11 → EDIP 09-05 01:36 → 3N 09-05 11:38
PROVIDERS: ADMIT Internal Medicine; ATTEND Internal Medicine
DX: J43.9 Emphysema, unspecified (principal); E83.39 Other disorders of phosphorus metabolism; J45.902 Unspecified asthma with status asthmaticus; F15.90 Other stimulant use, unspecified, uncomplicated; I10 Essential (primary) hypertension; R09.02 Hypoxemia; Z53.29 Procedure and treatment not carried out because of patient's decision for other reasons; F17.200 Nicotine dependence, unspecified, uncomplicated; Z86.14 Personal history of Methicillin resistant Staphylococcus aureus infection; Z59.0 Homelessness; Z91.14 Patient's other noncompliance with medication regimen
CPT/HCPCS: 36415; 71045; 80048; 80053; 80307; 83735; 84100; 85025; 87400; 93005; 94640; G0378; J1650; J7509; J7620; J2920; J3475; J7030; J7512

== ENCOUNTER 2019-11-23 20:35 | Emergency (ER) | payer MEDICAID ==
[~2019-11-23] VITALS: Ht 165.1 cm; Wt 85.5 kg
[2019-11-23] MEDS ORDERED: SODIUM CHLORIDE FLUSH 10ML SYR IVF ONE (21:30)
[2019-11-23] MEDS ORDERED: ONDANSETRON 2MG/ML, 2ML IVPush ONE (21:30)
[2019-11-23 21:50] LABS: BASOPHILS # (AUTO) 0.03 x10^3/uL (0-0.1); BASOPHILS % (AUTO) 1 % (0-1); EOSINOPHILS # (AUTO) 0.07 x10^3/uL (0-0.4); EOSINOPHILS % (AUTO) 1 % (1-7); LYMPHOCYTES # (AUTO) 1.12 x10^3/uL (1-3.4); LYMPHOCYTES % (AUTO) 19 % (22-44); MD NO; MEAN CORPUSCULAR HEMOGLOBIN 29.5 pg (27.0-34.8); MEAN CORPUSCULAR HGB CONC 33.2 g/dL (32.4-35.8); MEAN CORPUSCULAR VOLUME 89.1 fL (80-100); MEAN PLATELET VOLUME 9.1 fL (7.4-10.4); MONOCYTES # (AUTO) 0.47 x10^3/uL (0.2-0.8); MONOCYTES % (AUTO) 8 % (2-9); NEUTROPHILS % (AUTO) 71 % (42-75); PLATELET COUNT 212 x10^3/uL (130-400); RED BLOOD COUNT 5.33 x10^6/uL (3.82-5.3); RED CELL DISTRIBUTION WIDTH 14.2 % (9.6-15.2)
[2019-11-23 22:00] LABS: ALANINE AMINOTRANSFERASE 39 U/L (12-78); ALBUMIN 3.5 g/dL (3.4-5.0); ANION GAP 6 mmol/L (5-15); CALCIUM 8.7 mg/dL (8.5-10.1); CHLORIDE 107 mmol/L (98-107); CREATININE 0.75 mg/dL (0.55-1.02)
[2019-11-23 22:04] LABS: ALKALINE PHOSPHATASE 71 U/L (45-117); BILIRUBIN,TOTAL 0.5 mg/dL (0.2-1.0); TOTAL PROTEIN 7.7 g/dL (6.4-8.2); TROPONIN I 0.015 ng/mL (0.000-0.045)
--- NOTE | 2019-11-23 23:10 | NUR ---
PT TO TRIAGE, VS RECHECKED
[2019-11-23] MEDS ORDERED: ONDANSETRON 2MG/ML, 2ML ONE (23:32)
--- NOTE | 2019-11-23 23:34 | NUR ---
PT TO ROOM AT THIS TIME.
[2019-11-24] MEDS ORDERED: ALBUTEROL SULFATE 2.5 MG/3 ML NPPB ONE
--- NOTE | 2019-11-24 00:15 | NUR ---
RT IN ROOM AT THIS TIME.
--- NOTE | 2019-11-24 00:35 | NUR ---
PT SLEEPING ON GURNEY WITH FAMILY AT BS FOR SUPPORT. PT UP TO BR VIA WHEELCHAIR FOR COMFORT.
[2019-11-24] MEDS ORDERED: BUTALB/APAP/CAFFEINE 50MG/325MG/40MG PO ONE (01:00)
[2019-11-24] MEDS ORDERED: ONDANSETRON ODT 4 MG PO ONE (01:00)
[2019-11-24] MEDS ORDERED: DIPHENHYDRAMINE 25 MG CAPSULE PO ONE (01:00)
[2019-11-24] MEDS ORDERED: ONDANSETRON ODT 4 MG ONE (01:18)
[2019-11-24] MEDS ORDERED: DIPHENHYDRAMINE 25 MG CAPSULE ONE (01:18)
[2019-11-24 01:28] VITALS: BP 178/87
== END 2019-11-24 01:50 | disposition home or self-care (01) ==
LOC: ED 11-24 00:40
DX: J44.1 Chronic obstructive pulmonary disease with (acute) exacerbation (principal); G44.219 Episodic tension-type headache, not intractable; F15.129 Other stimulant abuse with intoxication, unspecified; J15.9 Unspecified bacterial pneumonia; I10 Essential (primary) hypertension; F17.200 Nicotine dependence, unspecified, uncomplicated; I44.7 Left bundle-branch block, unspecified
CPT/HCPCS: 36415; 71045; 80053; 84484; 85025; 93005; 94640; 99285; J7512; J7613; Q0162; Q0163

== ENCOUNTER 2019-11-25 20:26 | Emergency (ER) | payer MEDICAID ==
[~2019-11-25] VITALS: Ht 165.1 cm; Wt 75.0 kg
--- NOTE | 2019-11-25 21:53 | NUR ---
84% RA, PLACED 2L NC. PT TO XRAY.
[2019-11-25] MEDS ORDERED: ALBUTEROL/IPRATROPIUM 2.5MG/0.5MG, 3 ML NPPB ONE (22:00)
[2019-11-25] MEDS ORDERED: ALBUTEROL/IPRATROPIUM 2.5MG/0.5MG, 3 ML ONE (22:05)
[2019-11-25 23:32] VITALS: BP 138/79
== END 2019-11-25 23:35 | disposition home or self-care (01) ==
LOC: ED 21:00
DX: J18.9 Pneumonia, unspecified organism (principal); R06.00 Dyspnea, unspecified; F17.210 Nicotine dependence, cigarettes, uncomplicated; J45.909 Unspecified asthma, uncomplicated
CPT/HCPCS: 71045; 93005; 94640; 99283; 99406

== ENCOUNTER 2019-12-04 18:23 | Inpatient (IN) | payer MEDICAID ==
[~2019-12-04] VITALS: Ht 165.1 cm; Wt 81.7 kg
[2019-12-04] MEDS ORDERED: ALBUTEROL/IPRATROPIUM 2.5MG/0.5MG, 3 ML NPPB ONE ×2 (19:00→20:00)
[2019-12-04 19:06] LABS: RAPID INFLUENZA A Negative (Negative); RAPID INFLUENZA B Negative (Negative)
[2019-12-04] MEDS ORDERED: ALBUTEROL/IPRATROPIUM 2.5MG/0.5MG, 3 ML ONE ×2 (19:21→20:00)
--- NOTE | 2019-12-04 19:24 | NUR ---
PT FROM LOBBY TO ROOM WITH STEADY GAIT. PT ATTACHED TO VS AND CARDIAC MONITORS. VSS AT THIS TIME. RT AT BS WITH CALL LIGHT WITHIN REACH. AWAITING ERP.
[2019-12-04] MEDS ORDERED: AZITHROMYCIN 500 MG in SODIUM CHLORIDE 0.9% 250 ML IVPB ONE (20:00)
[2019-12-04] MEDS ORDERED: SODIUM CHLORIDE FLUSH 10ML SYR IVF ONE (20:00)
[2019-12-04] MEDS ORDERED: CEFTRIAXONE PMX 1GM/50ML 50 ML IVPB ONE (20:00)
[2019-12-04] MEDS ORDERED: methylPREDNISolone SOD SUCC 125 MG/2 ML IV ONE (20:00)
--- NOTE | 2019-12-04 20:02 | NUR ---
UNABLE TO OBTAIN IV ACCESS TIMES 2. GWEN Mayers RN, NOTIFIED FOR PLACEMENT OF US IV.
--- NOTE | 2019-12-04 20:50 | NUR ---
GWEN RN AT . UNABLE TO OBTAIN IV ACCESS WITH US IV AT THIS TIME. LAB WAS ONLY ABLE TO OBTAIN ONE SET OF BC'S AT THIS TIME.
--- NOTE | 2019-12-04 21:03 | NUR ---
STILL UNABLE TO OBTAIN IV ACCESS AT THIS TIME. GWEN AT BS TO CONTINUE ATTEMPTS.
--- NOTE | 2019-12-04 22:38 | NUR ---
DR GARCIA AT FOR PLACEMENT OF CENTRAL LINE. CONSENT OBTAINED AND PLACED WITH CHART. PT TOLERATED PROCEDURE WELL.
[2019-12-04] MEDS ORDERED: SODIUM CHLORIDE 0.9% 1,000ML IVBOLUS ONE (23:00)
[2019-12-04] MEDS ORDERED: methylPREDNISolone SOD SUCC 125 MG/2 ML ONE (23:04)
[2019-12-04] MEDS ORDERED: CEFTRIAXONE PMX 1GM/50ML 50 ML ONE (23:04)
[2019-12-04 23:17] LABS: MEAN CORPUSCULAR HEMOGLOBIN 29.4 pg (27.0-34.8); MEAN CORPUSCULAR HGB CONC 32.8 g/dL (32.4-35.8); MEAN CORPUSCULAR VOLUME 89.6 fL (80-100); MEAN PLATELET VOLUME 8.8 fL (7.4-10.4); PLATELET COUNT 275 x10^3/uL (130-400); RED BLOOD COUNT 5.01 x10^6/uL (3.82-5.3); RED CELL DISTRIBUTION WIDTH 14.1 % (9.6-15.2)
[2019-12-04 23:22] LABS: ALANINE AMINOTRANSFERASE 29 U/L (12-78); ALBUMIN 2.7 g/dL (3.4-5.0); ANION GAP 4 mmol/L (5-15); CHLORIDE 109 mmol/L (98-107); CREATININE 0.61 mg/dL (0.55-1.02)
[2019-12-04 23:26] LABS: ALKALINE PHOSPHATASE 73 U/L (45-117); BILIRUBIN,TOTAL 0.2 mg/dL (0.2-1.0); TOTAL PROTEIN 6.8 g/dL (6.4-8.2); TROPONIN I < 0.015 ng/mL (0.000-0.045)
[2019-12-04 23:56] LABS: BASOPHILS % (AUTO) 0 % (0-1); EOSINOPHILS # (AUTO) 0.01 x10^3/uL (0-0.4); EOSINOPHILS % (AUTO) 0 % (1-7); LYMPHOCYTES # (AUTO) 0.45 x10^3/uL (1-3.4); LYMPHOCYTES % (AUTO) 5 % (22-44); MD SCAN; MONOCYTES # (AUTO) 0.04 x10^3/uL (0.2-0.8); MONOCYTES % (AUTO) 0 % (2-9); NEUTROPHILS # (AUTO) 9.09 x10^3/uL (1.8-6.8); NEUTROPHILS % (AUTO) 95 % (42-75)
[2019-12-05] MEDS ORDERED: ENALAPRILAT 1.25 MG/ML, 2ML IVPush PRN
[2019-12-05] MEDS ORDERED: MAGNESIUM SULFATE PMX 2GM/50ML 50 ML IV ONE
[2019-12-05] MEDS ORDERED: hydrALAzine 20 MG/ML, 1ML IVPush PRN
[2019-12-05] MEDS ORDERED: ONDANSETRON 2MG/ML, 2ML IVPush PRN
[2019-12-05] MEDS ORDERED: PROMETHAZINE 25 MG/ML, 1ML IM PRN
[2019-12-05] MEDS ORDERED: ACETAMINOPHEN 325 MG TABLET PO PRN
[2019-12-05] MEDS ORDERED: PHARMACY INSTRUCTION MC PRN
[2019-12-05] MEDS ORDERED: CEFTRIAXONE PMX 1GM/50ML 50 ML IV SCH
[2019-12-05] MEDS ORDERED: methylPREDNISolone SOD SUCC 125 MG/2 ML IVPush SCH
[2019-12-05] MEDS ORDERED: POLYETHYLENE GLYCOL 17 GM PACKET PO PRN
[2019-12-05] MEDS ORDERED: BISACODYL 10 MG SUPP PR PRN
--- NOTE | 2019-12-05 00:11 | NUR ---
PT WHEELED TO RESTROOM AT THIS TIME IN WHEELCHAIR. PT BACK IN BED AND REATTACHED TO VS AND CARDIAC MONITORS.
--- NOTE | 2019-12-05 00:55 | NUR ---
ATTEMPT TO CALL REPORT OF PT TO MARLO LINARES. MILAGROS UNAVAILABLE FOR REPORT. WILL CALL BACK IN 5 MINUTES.
--- NOTE | 2019-12-05 01:06 | NUR ---
REPORT OF PT TO MARLO LINARES. ALL QUESTIONS ANSWERED. TECH PAGED FOR TRANSPORT OF PT TO FLOOR.
[2019-12-05 02:05] VITALS: BP 156/94
[2019-12-05] MEDS: ENOXAPARIN 40 MG/0.4 ML SQ SCH ×2 (02:34→23:05)
[2019-12-05 06:04] LABS: MEAN CORPUSCULAR HEMOGLOBIN 29.4 pg (27.0-34.8); MEAN CORPUSCULAR HGB CONC 32.6 g/dL (32.4-35.8); MEAN PLATELET VOLUME 9.1 fL (7.4-10.4); PLATELET COUNT 274 x10^3/uL (130-400); RED BLOOD COUNT 4.86 x10^6/uL (3.82-5.3); RED CELL DISTRIBUTION WIDTH 13.9 % (9.6-15.2)
[2019-12-05 06:12] LABS: CHLORIDE 110 mmol/L (98-107)
[2019-12-05 06:18] LABS: ALANINE AMINOTRANSFERASE 30 U/L (12-78); ALBUMIN 2.4 g/dL (3.4-5.0); ALKALINE PHOSPHATASE 72 U/L (45-117); ANION GAP 5 mmol/L (5-15); BILIRUBIN,TOTAL 0.3 mg/dL (0.2-1.0); CALCIUM 7.8 mg/dL (8.5-10.1); CREATININE 0.81 mg/dL (0.55-1.02); TOTAL PROTEIN 6.6 g/dL (6.4-8.2)
[2019-12-05 06:29] LABS: BASOPHILS % (AUTO) 0 % (0-1); EOSINOPHILS % (AUTO) 0 % (1-7); LYMPHOCYTES % (AUTO) 5 % (22-44); MD SCAN; MONOCYTES # (AUTO) 0.04 x10^3/uL (0.2-0.8); MONOCYTES % (AUTO) 0 % (2-9); NEUTROPHILS # (AUTO) 9.68 x10^3/uL (1.8-6.8); NEUTROPHILS % (AUTO) 95 % (42-75)
[2019-12-05] MEDS: ALBUTEROL/IPRATROPIUM 2.5MG/0.5MG, 3 ML NPPB SCH ×4 (06:45→19:16)
[2019-12-05 07:41] VITALS: BP 160/90
[2019-12-05] MEDS: CARVEDILOL 6.25 MG TABLET PO SCH ×2 (08:40→17:41)
[2019-12-05] MEDS: LISINOPRIL 20 MG TABLET PO SCH (08:40)
[2019-12-05] MEDS ORDERED: HYDROCHLOROTHIAZIDE 12.5 MG CAPSULE PO SCH (09:00)
[2019-12-05 13:54] VITALS: BP 138/68
[2019-12-05 18:39] VITALS: BP 144/76
[2019-12-05] MEDS ORDERED: AZITHROMYCIN 500 MG in SODIUM CHLORIDE 0.9% 250 ML IV SCH ×2 (20:00)
[2019-12-05] MEDS: CEFTRIAXONE PMX 1GM/50ML 50 ML IV SCH (20:08)
[2019-12-05] MEDS ORDERED: DOCUSATE 100 MG CAPSULE PO PRN ×2 (21:30)
[2019-12-05 23:30] LABS: AMPHETAMINE SCREEN, URINE Positive (Negative); BARBITURATE SCREEN, URINE Positive (Negative); BENZODIAZEPINE SCREEN, URINE Negative (Negative); CANNABINOID SCREEN, URINE Negative (Negative); COCAINE SCREEN, URINE Negative (Negative); METHADONE SCREEN, URINE Negative (Negative); OPIATE SCREEN, URINE Negative (Negative)
[2019-12-06] VITALS (7 sets, daily range): BP systolic 110–155; BP diastolic 66–82
[2019-12-06] MEDS: CARVEDILOL 6.25 MG TABLET PO SCH ×2 (05:13→17:26)
[2019-12-06] MEDS: ACETAMINOPHEN 325 MG TABLET PO PRN ×2 (06:03→11:56)
[2019-12-06] MEDS: ALBUTEROL/IPRATROPIUM 2.5MG/0.5MG, 3 ML NPPB SCH ×4 (06:20→20:00)
[2019-12-06 08:08] LABS: ANION GAP 4 mmol/L (5-15); CALCIUM 7.9 mg/dL (8.5-10.1); CHLORIDE 110 mmol/L (98-107); CREATININE 0.73 mg/dL (0.55-1.02)
[2019-12-06] MEDS: LISINOPRIL 20 MG TABLET PO SCH (08:32)
[2019-12-06 12:52] LABS: BASOPHILS # (AUTO) 0.03 x10^3/uL (0-0.1); BASOPHILS % (AUTO) 0 % (0-1); EOSINOPHILS # (AUTO) 0.19 x10^3/uL (0-0.4); EOSINOPHILS % (AUTO) 2 % (1-7); LYMPHOCYTES # (AUTO) 2.44 x10^3/uL (1-3.4); LYMPHOCYTES % (AUTO) 27 % (22-44); MD NO; MEAN CORPUSCULAR HEMOGLOBIN 29.1 pg (27.0-34.8); MEAN CORPUSCULAR HGB CONC 32.6 g/dL (32.4-35.8); MEAN CORPUSCULAR VOLUME 89.5 fL (80-100); MEAN PLATELET VOLUME 8.3 fL (7.4-10.4); MONOCYTES # (AUTO) 0.16 x10^3/uL (0.2-0.8); MONOCYTES % (AUTO) 2 % (2-9); NEUTROPHILS # (AUTO) 6.24 x10^3/uL (1.8-6.8); NEUTROPHILS % (AUTO) 69 % (42-75); PLATELET COUNT 304 x10^3/uL (130-400); RED CELL DISTRIBUTION WIDTH 14.3 % (9.6-15.2)
[2019-12-06] MEDS: CEFTRIAXONE PMX 1GM/50ML 50 ML IV SCH (20:23)
[2019-12-06] MEDS: ENOXAPARIN 40 MG/0.4 ML SQ SCH (23:31)
[2019-12-07] MEDS: ALBUTEROL/IPRATROPIUM 2.5MG/0.5MG, 3 ML NPPB SCH ×4 (07:00→18:33)
[2019-12-07 07:10] VITALS: BP 133/70
[2019-12-07 07:12] LABS: CALCIUM 8.2 mg/dL (8.5-10.1); CREATININE 0.65 mg/dL (0.55-1.02)
[2019-12-07 07:27] LABS: BASOPHILS # (AUTO) 0.04 x10^3/uL (0-0.1); BASOPHILS % (AUTO) 1 % (0-1); EOSINOPHILS # (AUTO) 0.24 x10^3/uL (0-0.4); EOSINOPHILS % (AUTO) 3 % (1-7); LYMPHOCYTES # (AUTO) 2.21 x10^3/uL (1-3.4); LYMPHOCYTES % (AUTO) 30 % (22-44); MD NO; MEAN CORPUSCULAR HEMOGLOBIN 29.6 pg (27.0-34.8); MEAN CORPUSCULAR HGB CONC 32.4 g/dL (32.4-35.8); MEAN CORPUSCULAR VOLUME 91.2 fL (80-100); MEAN PLATELET VOLUME 8.4 fL (7.4-10.4); MONOCYTES # (AUTO) 0.44 x10^3/uL (0.2-0.8); MONOCYTES % (AUTO) 6 % (2-9); NEUTROPHILS # (AUTO) 4.49 x10^3/uL (1.8-6.8); NEUTROPHILS % (AUTO) 60 % (42-75); PLATELET COUNT 303 x10^3/uL (130-400); RED BLOOD COUNT 4.66 x10^6/uL (3.82-5.3)
[2019-12-07 07:42] LABS: ANION GAP 4 mmol/L (5-15); CHLORIDE 103 mmol/L (98-107)
[2019-12-07] MEDS: SODIUM CHLORIDE 0.9% 1,000 ML IV SCH (09:52)
[2019-12-07] MEDS: CARVEDILOL 6.25 MG TABLET PO SCH ×2 (09:52→17:09)
[2019-12-07 13:27] VITALS: BP 154/83
[2019-12-07 19:22] VITALS: BP 142/77
[2019-12-07] MEDS: CEFTRIAXONE PMX 1GM/50ML 50 ML IV SCH (20:29)
[2019-12-07] MEDS ORDERED: LISINOPRIL 20 MG TABLET PO SCH (21:00)
[2019-12-07] MEDS ORDERED: AMLODIPINE 2.5 MG TABLET PO SCH (21:00)
[2019-12-07] MEDS: ENOXAPARIN 40 MG/0.4 ML SQ SCH (23:49)
[2019-12-08 01:28] VITALS: BP 155/92
[2019-12-08] MEDS: ACETAMINOPHEN 325 MG TABLET PO PRN (01:40)
[2019-12-08] MEDS: SODIUM CHLORIDE 0.9% 1,000 ML IV SCH (01:40)
[2019-12-08 05:30] VITALS: BP 134/75
[2019-12-08] MEDS: CARVEDILOL 6.25 MG TABLET PO SCH (05:32)
[2019-12-08 06:58] VITALS: BP 121/71
[2019-12-08] MEDS: ALBUTEROL/IPRATROPIUM 2.5MG/0.5MG, 3 ML NPPB SCH ×3 (07:00→15:00)
[2019-12-08] MEDS ORDERED: LISI-170 PO (13:20)
[2019-12-08] MEDS ORDERED: AMLO2.5T5 PO (13:20)
[2019-12-08] MEDS ORDERED: CARV6.2512 PO (13:20)
[2019-12-08] MEDS ORDERED: AMOX1TAB12 PO (13:20)
[2019-12-08 13:41] VITALS: BP 151/82
== END 2019-12-08 17:12 | disposition home or self-care (01) | DRG 720 ==
LOC: ED 23:01 → SUATTDRO 23:30 → EDIP 23:33 → 4WST 12-05 01:35
PROVIDERS: ADMIT Internal Medicine; ATTEND Internal Medicine
PROC: 02HV33Z Insertion of Infusion Device into Superior Vena Cava, Percutaneous Approach (ICD-10-PCS; principal; 2019-12-04)
DX: A41.9 Sepsis, unspecified organism (principal); J96.01 Acute respiratory failure with hypoxia; J43.9 Emphysema, unspecified; J18.9 Pneumonia, unspecified organism; E88.09 Other disorders of plasma-protein metabolism, not elsewhere classified; J45.901 Unspecified asthma with (acute) exacerbation; E66.9 Obesity, unspecified; Z68.30 Body mass index [BMI] 30.0-30.9, adult; F15.10 Other stimulant abuse, uncomplicated; F17.200 Nicotine dependence, unspecified, uncomplicated; G89.29 Other chronic pain; I10 Essential (primary) hypertension; I44.7 Left bundle-branch block, unspecified; Z59.0 Homelessness; Z86.14 Personal history of Methicillin resistant Staphylococcus aureus infection; Z91.19 Patient's noncompliance with other medical treatment and regimen
CPT/HCPCS: 36415; 36556; 36600; 71045; 71046; 80048; 80053; 80307; 82803; 83605; 83735; 83880; 84100; 84484; 85025; 87040; 87070; 87205; 87400; 93005; 94640; 96374; 96375; G0378; J0456; J0696; J1650; J2930; J3475; J7030; J7050